=== PATIENT | male | born 1950 | race Two or more races ===

== ENCOUNTER → 2019-02-07 10:46 | Outpatient (CLI) | payer MEDICARE, SELFPAY ==
--- NOTE | 2019-02-07 11:17 | EKG12_ITS ---
Test Reason : PREOP Blood Pressure : / mmHG Vent. Rate : 059 BPM Atrial Rate : 059 BPM P-R Int : 192 ms QRS Dur : 100 ms QT Int : 380 ms P-R-T Axes : 039 -28 007 degrees QTc Int : 376 ms Sinus bradycardia Incomplete right bundle branch block Borderline ECG Confirmed by ELEAZAR RIVERO, EDNA ([id number]), photographic editor JANI SKELTON ([id number]) on 02/09/2019 10:33:33 AM Referred By: Bill Sanchez Confirmed By:EDNA BUSH MD
[2019-02-07 11:38] LABS: Hematocrit 39.8 % (40-54); Hemoglobin 13.7 g/dL (13.0-16.5); Mean Corp Hgb Conc 34.4 g/dL (32-36); Mean Corpuscular Hgb 30.5 pg (27.0-32.0); Mean Corpuscular Volume 88.6 fL (80-94); Mean Platelet Vol. 9.3 fl (6.2-12.0); Platelet Count 231 K/mm3 (150-450); RBC Distribution Width CV 12.2 % (11.6-14.6); RBC Distribution Width SD 39.4 fl (35.1-43.9); Red Blood Count 4.49 M/mm3 (4.6-6.2); White Blood Count 8.1 K/mm3 (4.4-11.0)
[2019-02-07 11:59] LABS: Anion Gap 8 (5-15); BUN 19 mg/dL (7-18); BUN/Creat Ratio 17.9 RATIO (10-20); Calcium,Total 9.1 mg/dL (8.5-10.1); Chloride 108 mmol/L (98-107); Creatinine, Serum 1.06 mg/dL (0.70-1.30); EST Glomerular Filtration Rate 74 mL/min (>60); Est Glom Filt Rate - Afr Amer 89 mL/min (>60); Glucose 100 mg/dL (74-106); Potassium 4.2 mmol/L (3.5-5.1); Sodium Level 142 mmol/L (136-145)
== END ==
PROVIDERS: Orthopaedic Surgery; Family Provider Family Medicine; PCP Family Medicine; Referring Provider Physician Assistant Surgical; Visit Provider Physician Assistant Surgical
DX: Z01.818 Encounter for other preprocedural examination (principal); Z01.810 Encounter for preprocedural cardiovascular examination
CPT/HCPCS: 36415; 80048; 85027; 93005

== ENCOUNTER → 2019-07-21 10:17 | Outpatient (CLI) | payer MEDICARE, SELFPAY ==
[2019-06-24 13:22] VITALS: BMI 31.6
[2019-07-21 12:35] LABS: Cholesterol 251 mg/dL (200); High Density Lipoprotein 51 mg/dL; PSA,Total - Annual Screen 0.68 ng/mL (0.00-4.00); Triglycerides 242 mg/dL; Very Low Density Lipoprotein 48 mg/dL (5-40)
== END ==
PROVIDERS: Family Medicine; Family Provider Family Medicine; PCP Family Medicine; Referring Provider Family Medicine; Visit Provider Family Medicine
DX: N40.0 Benign prostatic hyperplasia without lower urinary tract symptoms (principal); Z13.220 Encounter for screening for lipoid disorders
CPT/HCPCS: 36415; 80061; 84153; G0103

== ENCOUNTER 2019-08-09 00:55 | Inpatient (IN) | payer MEDICARE, SELFPAY ==
[2019-06-24 13:22] VITALS: BMI 31.6
[2019-08-09] VITALS (16 sets, daily range): BP systolic 107–153; BP diastolic 52–85; PULSE 55–90; RESP 14–25; TEMP 36.3–37.3; O2SAT 93–100; BMI 31.9; BMI 31.1; BMI 31.2
--- NOTE | 2019-08-09 01:12 | CT_ITS ---
STUDY: CT ABDOMEN AND PELVIS WITH CONTRAST REASON FOR EXAM: Male, 68 years old. ABDOMEN PAIN SINCE 930 PM LAST NIGHT BUT WORSE NOW -- HX:HLD,UMBILICAL HERNIA REPAIR RADIATION DOSAGE (If Supplied By Facility): CTDIvol = ( 18.10 ) mGy, DLP = ( 1205.49 ) mGycm TECHNIQUE: Transaxial images were obtained from the dome of the diaphragm to the symphysis pubis without oral contrast. Oral and amp; IV Gastrografin and amp; 100mL Isovue-300 was administered. Sagittal and coronal images were reconstructed. Individualized dose optimization techniques were used for this CT. COMPARISON: None. FINDINGS: There is mild posterior dependent atelectasis. Remainder of the lung bases are clear. The visualized portions of the heart are within normal limits. Normal liver. Overdistended gallbladder with suggestion of a stone near the gallbladder neck measuring 1.9 cm. Otherwise normal gallbladder and extrahepatic biliary system. Normal spleen. Normal pancreas. Normal bilateral adrenal glands. Right-sided peripelvic cysts, otherwise normal right kidney. Left-sided peripelvic cysts, otherwise normal left kidney. Nonspecific bilateral perinephric stranding. Normal bilateral ureters. The stomach is distended otherwise unremarkable. No hiatal hernia. There are loops of proximal small bowel distended up to 3.4 cm suggestive of localized ileus. The descending colon is decompressed otherwise unremarkable. The appendix is visualized and appears normal. There is diffuse atherosclerotic calcification of the abdominal aorta, without a demonstrated aneurysm. Normal inferior vena cava. Normal retroperitoneum. Normal urinary bladder. Normal visualized prostate gland. Normal abdominal wall. There are diffuse degenerative changes of the visualized lumbar spine. CT/Abdomen/Pelvis WITH Contrast IMPRESSION: Localized ileus of the proximal small bowel. Differential diagnosis includes nonspecific gastroenteritis and less likely early/partial small bowel obstruction. No acute appendicitis. Solitary gallstone with overdistention of the gallbladder otherwise abdominal viscera are unremarkable. Electronically Signed: Zoya Posadas MD at 3:37 EST , Service support ,
--- NOTE | 2019-08-09 01:12 | EKG12_ITS ---
Test Reason : GEN ILL Blood Pressure : / mmHG Vent. Rate : 058 BPM Atrial Rate : 058 BPM P-R Int : 226 ms QRS Dur : 102 ms QT Int : 406 ms P-R-T Axes : 054 -30 021 degrees QTc Int : 398 ms Sinus bradycardia with sinus arrhythmia with 1st degree A-V block Left axis deviation Incomplete right bundle branch block Abnormal ECG Confirmed by CHANDA RIVERO, TAMANNA ([id number]), video effects editor JANI SKELTON ([id number]) on 08/10/2019 1:48:53 PM Referred By: MECCA Confirmed By:TAMANNA ARMAS MD
--- NOTE | 2019-08-09 01:13 | ED.DCSUM_ITS ---
History of Present Illness Chief Complaint: Abd Pain Informant: Patient Onset: Hours - 3 hours Context: Gradual Onset Current Severity: Moderate Maximum Severity: Moderate Narrative: Patient presents with 3-hour history of mid abdominal pain. States it started gradually but continued to worsen. He is had no nausea or vomiting. He denies diarrhea. Pain started shortly after he took his evening medications. Only abdominal surgery was for an umbilical hernia repair 3 years ago. - Past Medical History (1) Arthritis Status: Chronic (2) Gout Status: Resolved (3) High cholesterol Status: Chronic Past Medical History - Allergies and Home Meds Allergies/Adverse Reactions: Allergies No Known Allergies Allergy (Verified 08/09/19 00:56) Primary Care Physician: Franko Haque MD [Primary Care Provider] - Prior records reviewed: Yes Lives: Spouse/ Significant Other Smoking Status: Former smoker Review of Systems General: Denies: Chills, Fever Eyes: Denies: Visual changes - left, Visual changes - bilaterally ENT: Denies: Bilateral ear pain Cardiovascular: Denies: Chest pain, Palpitations Respiratory: Denies: Dyspnea, Cough Gastrointestinal: Reports: Abdominal pain. Denies: Nausea, Vomiting, Diarrhea, Constipation Musculoskeletal: Denies: Back pain, Extremity Pain Skin: Denies: Rash Neurological: Denies: Headache, Parasthesia Allergy: Denies: Uticaria Physical Exam Vital Signs/Narrative: Vital Signs Temp Pulse Resp BP Pulse Ox 08/09/19 00:59 97.6 F L 59 L 18 153/80 H 98 Inital Vital Signs reviewed: Yes General: Well nourished, Well developed Head: Normocephalic ENT: Moist mucous membranes Neck: Supple Cardiovascular: Regular rate, Regular rhythm Respiratory: No distress, CTA bilaterally Abdomen: Soft, Normal bowel sounds, Tender - Mild epigastric tenderness.. Negative for: Guarding, Rebound tenderness Extremities: Nontender, No edema, - - Strong and equal distal pulses. Skin: Normal color, No rash Neurological: Alert, Oriented x3 Psychological: Normal affect Diagnostic/Tx/Re-eval Impressions Abdomen/Pelvis CT 08/09/19 01:12 IMPRESSION: Localized ileus of the proximal small bowel. Differential diagnosis includes nonspecific gastroenteritis and less likely early/partial small bowel obstruction. No acute appendicitis. Solitary gallstone with overdistention of the gallbladder otherwise abdominal viscera are unremarkable. Electronically Signed: Zoya Posadas MD at 3:37 EST , Service support , 08/09/19 01:12 Abdomen/Pelvis WITH Contrast [CT] Stat Laboratory Results 08/09/19 08/09/19 08/09/19 01:05 01:05 01:05 WBC 7.6 RBC 4.45 L Hgb 13.6 Hct 39.3 L MCV 88.3 MCH 30.6 MCHC 34.6 RDW Std Deviation 39.5 RDW Coeff of Faisal 12.3 Plt Count 240 MPV 9.1 Immature Gran % (Auto) 0.300 Neut % (Auto) 68.5 Lymph % (Auto) 22.7 [place] % (Auto) 6.4 Eos % (Auto) 1.7 Baso % (Auto) 0.4 Absolute Neuts (auto) 5.2 Absolute Lymphs (auto) 1.73 Nucleated RBC % 0 Sodium 141 Potassium 3.6 Chloride 106 Carbon Dioxide 29.0 Anion Gap 6 BUN 15 Creatinine 1.22 Estim Creat Clear Calc 55.29 Est GFR (MDRD) Af Amer 76 Est GFR (MDRD) Non-Af 62 BUN/Creatinine Ratio 12.3 Glucose 115 H Calcium 9.8 Total Bilirubin 0.40 Direct Bilirubin 0.16 AST 22 ALT 25 Alkaline Phosphatase 58 Troponin I < 0.015 Total Protein 7.7 Albumin 4.3 Globulin 3.4 Lipase 143 - EKG Initial EKG Interpretation: Sinus Bradycardia - Sinus bradycardia at 58 bpm. No acute ischemia. - Medical Decision Making Patient was initially given morphine and Zofran followed by dose of Dilaudid for pain control. Lab work is unremarkable. CT scan shows evidence of ileus. Patient continues to have significant abdominal discomfort. I recommended observation overnight for repeat abdominal exam. I advised him that at this time his gallbladder is distended but there is no pericholecystic fluid. Patient is not focally tender in the right upper quadrant. This will need to be watched and ultrasound obtained if symptoms worsen in this region. I will speak with hospitalist regarding admission. ED Disposition - Plan for ED Patient: Disposition: Acute Care Hospital [facility] Diagnosis: Ileus Referrals: Franko Haque MD [Primary Care Provider] -
[2019-08-09 01:19] LABS: Absolute Lymphocyte Count 1.73 X10^3/uL (0.83-4.51); Absolute Neutrophil Count 5.2 X10^3/uL (2.0-7.7); Basophil# 0.03 X10^3/uL; Basophil% 0.4 % (0-1); Eosinophil# 0.13 X10^3/uL; Eosinophils% 1.7 % (0-5); Hematocrit 39.3 % (40-54); Hemoglobin 13.6 g/dL (13.0-16.5); Lymphocyte # 1.73 X10^3/ul (4.0); Lymphocyte % 22.7 % (19-41); Mean Corp Hgb Conc 34.6 g/dL (32-36); Mean Corpuscular Hgb 30.6 pg (27.0-32.0); Mean Corpuscular Volume 88.3 fL (80-94); Mean Platelet Vol. 9.1 fl (6.2-12.0); Monocyte# 0.49 X10^3/uL; Monocyte% 6.4 % (0-10); NRBC Flagged by Analyzer 0 % (0-5); Neutrophil # 5.23 X10^3/uL (2.7-7.7); Neutrophil % 68.5 % (47-70); Platelet Count 240 K/mm3 (150-450); RBC Distribution Width CV 12.3 % (11.6-14.6); RBC Distribution Width SD 39.5 fl (35.1-43.9); Red Blood Count 4.45 M/mm3 (4.6-6.2); White Blood Count 7.6 K/mm3 (4.4-11.0)
[2019-08-09] MEDS: Morphine 4 MG/ML Syringe IV (01:21)
[2019-08-09] MEDS: 0.9% Normal Saline 1,000 ML 150 ML IV ×3 (01:21→13:37)
[2019-08-09] MEDS: Ondansetron 4 MG/2 ML Vial IV (01:21)
[2019-08-09 01:32] LABS: AST(SGOT) 22 U/L (15-37); Alanine Aminotransfer ALT/SGPT 25 U/L (16-61); Albumin, Serum 4.3 g/dL (3.2-5.0); Alkaline Phosphatase 58 U/L (45-117); Anion Gap 6 (5-15); BUN 15 mg/dL (7-18); BUN/Creat Ratio 12.3 RATIO (10-20); Bilirubin, Direct 0.16 mg/dL (0.00-0.30); Calcium,Total 9.8 mg/dL (8.5-10.1); Chloride 106 mmol/L (98-107); Creatinine, Serum 1.22 mg/dL (0.70-1.30); EST Glomerular Filtration Rate 62 mL/min (>60); Est Glom Filt Rate - Afr Amer 76 mL/min (>60); Estimated Creatinine Clearance 55.29 ml/min; Globulin 3.4 g/dL (2.2-4.2); Glucose 115 mg/dL (74-106); Lipase 143 U/L (73-393); Potassium 3.6 mmol/L (3.5-5.1); Protein, Total 7.7 g/dL (6.4-8.2); Sodium Level 141 mmol/L (136-145)
[2019-08-09] MEDS: HYDROmorphone 0.5 MG/0.5 ML SYRINGE IV (01:51)
--- NOTE | 2019-08-09 04:00 | PCM.HP.STD ---
Problem List (1) Arthritis Status: Chronic (2) Gout Status: Resolved (3) High cholesterol Status: Chronic (4) Ileus Status: Acute History of Present Illness Date of Admission: 08/09/19 Chief Complaint: abdominal pain The patient is a 68 year old male with no significant past medical history presents the emergency room with abdominal pain. Onset was last night at 9:00. 9/10 abdominal pain in the epigastrium, not associated with eating, no nausea vomiting or diarrhea. The pain became so severe he came to the emergency room to be evaluated. CT scan reveals a localized ileus in the small bowel and also notes a gallstone is present. CBC and BMP are within normal limits. Despite morphine and Dilaudid pain is still at 7/10. He will be admitted to general medical floor for pain control and monitoring of ileus. Past Medical History Past Medical History (Chronic Problems): Chronic Problems (Last Updated 06/24/19 @ 13:27 by Kam Franco) Arthritis (Chronic) High cholesterol (Chronic) Medical History: Medical History (Last Updated 06/24/19 @ 13:27 by Kam Franco) Back pain M54.9 History of arthritis Z87.39 History of gout Z87.39 Neck pain M54.2 Shoulder pain M25.519 Umbilical hernia K42.9 headaches Allergies No Known Allergies Allergy (Verified 08/09/19 00:56) Home Medications: Ambulatory Orders Medication Instructions Recorded terazosin 10 mg capsule 10 mg PO DAILY 06/24/19 Atorvastatin Calcium [Lipitor] 20 mg PO QHS 08/09/19 Diclofenac Sodium [Voltaren] 2 g TOPICAL TID PRN PRN 08/09/19 Docusate Sodium [Stool Softener] 100 mg PO DAILY 08/09/19 Surgical History: Surgical History (Last Updated 06/24/19 @ 13:27 by Kam Franco) History of shoulder surgery Z98.890 Lives: Spouse/ Significant Other Smoking Status: Former smoker Tobacco Use: Cigarettes - *Family History Maternal History Items: No pertinent history Review of Systems Constitutional: Denies: Chills, Fever, Weight Change HEENT: Denies: Head Aches, Sinus Congestion, Sinus Drainage Cardiovascular: Denies: Chest Pain, Palpitations Respiratory: Denies: Cough, Shortness of breath at rest, Sputum production Gastrointestinal: Reports: Abdominal Pain. Denies: Nausea, Vomiting Genitourinary: Denies: Dysuria Musculoskeletal: Denies: Joint Pain, Joint Tenderness Skin: Denies: Rash, Wounds Neurological: Denies: Numbness, Tingling, Focal weakness Psychiatric: Denies: Anxiety, Depression, Homicidal Ideations, Suicidal Ideations Hematologic/ Lymphatic: Denies: Easy Bruising, Easy Bleeding VTE Information - Inpt Only VTE Present on Admission: No VTE Mechan Device Prophylaxis: None VTE Pharm Prophylaxis ordered?: Yes Patient Problems: Active and Suspected Problems (Last Updated 06/24/19 @ 13:27 by Kam Franco) Ileus (Acute) - Physical Exam Vitals/I&O's: Vital Signs Temp Pulse Resp BP Pulse Ox 97.6 F L 55 L 16 124/71 H 98 08/09/19 00:59 08/09/19 03:06 08/09/19 03:06 08/09/19 03:06 08/09/19 03:06 Oxygen Flow Rate (L/min) 2 Oxygen Delivery Method Room Air Weight: 210 lb 5.136 oz Body Mass Index (BMI) 31.9 General: Alert, Oriented x3, Cooperative HEENT: Atraumatic, Normocephalic Neck: Supple, No JVD, Negative Carotid Bruits Lungs: Clear to auscultation, Normal air movement Cardiovascular: Regular rate, No murmurs Abdomen: Bowel Sounds Present, Distended, Tender Extremities: No edema Skin: No rashes Musculoskeletal: No Tenderness to Palpation of Joints or Extremities Neurological: Neuro grossly intact Psych/Mental Status: Normal Affect, Appropriate Laboratory Results 08/09/19 01:05: WBC 7.6, RBC 4.45 L, Hgb 13.6, Hct 39.3 L, MCV 88.3, MCH 30.6, MCHC 34.6, RDW Std Deviation 39.5, RDW Coeff of Faisal 12.3, Plt Count 240, MPV 9.1, Immature Gran % (Auto) 0.300, Neut % (Auto) 68.5, Lymph % (Auto) 22.7, [place] % (Auto) 6.4, Eos % (Auto) 1.7, Baso % (Auto) 0.4, Absolute Neuts (auto) 5.2, Absolute Lymphs (auto) 1.73, Nucleated RBC % 0 08/09/19 01:05: Sodium 141, Potassium 3.6, Chloride 106, Carbon Dioxide 29.0, Anion Gap 6, BUN 15, Creatinine 1.22, Estim Creat Clear Calc 55.29, Est GFR (MDRD) Af Amer 76, Est GFR (MDRD) Non-Af 62, BUN/Creatinine Ratio 12.3, Glucose 115 H, Calcium 9.8, Total Bilirubin 0.40, Direct Bilirubin 0.16, AST 22, ALT 25, Alkaline Phosphatase 58, Total Protein 7.7, Albumin 4.3, Globulin 3.4, Lipase 143 08/09/19 01:05: Troponin I < 0.015 Current Medications Sodium Chloride () 1,000 mls @ 150 mls/hr IV .Q6H40M OSIEL Last Admin: 08/09/19 01:21 Dose: 150 mls/hr Documented by: Assessment/Plan All Active Problems (Last Updated 06/24/19 @ 13:27 by Kam Franco) Gout (Resolved) Ileus (Acute) Sinusitis, acute (Acute) Chronic Problems (Last Updated 06/24/19 @ 13:27 by Kam Franco) Arthritis (Chronic) High cholesterol (Chronic) Plan 1. Ileus?possibly developing small bowel obstruction?admit to general medical floor, make patient n.p.o., Dilaudid 1 mg IV every 2 hours as needed pain, consult surgeon Dr. Vallejo, repeat KUB in the a.m. 2. Hyperlipidemia?continue home medication when patient is able to take p.o. 3. DVT prophylaxis?low molecular weight heparin Code Visit Inpatient E&M: [id number] Init Hosp L3
[2019-08-09 04:23] LABS: Bacteria 0 SEEN /hpf (None Seen); Color, Urine Yellow (Yellow); Glucose, Dipstick Normal (Normal); Ketone-Dipstick 50 mg/dl (Negative); Leukocyte Esterase-Dipstick Negative /ul (Negative); Mucous, Urine 0 SEEN /hpf (<or=2+); Nitrite-Dipstick Negative (Negative); Occult Blood-Urine Negative /ul (Negative); Protein-Dipstick Negative (Negative); Squamous Epithelial Cells - UA 0 SEEN /hpf (0-5); Urine Bilirubin Dipstick Negative (Negative); Urine Clarity Clear (Clear); Urine Urobilinogen Normal (Normal); White Blood Cells 0 SEEN /hpf (0-5)
[2019-08-09 04:35] LABS: Red Blood Cells-Urine 0-5 SEEN /hpf (0-5)
[2019-08-09] MEDS: HYDROmorphone 1 MG/ML Syringe IV (05:10)
[2019-08-09 06:53] LABS: ALB/GLOB Ratio 1.2 RATIO (0.9-2.4); AST(SGOT) 19 U/L (15-37); Alanine Aminotransfer ALT/SGPT 23 U/L (16-61); Albumin, Serum 3.8 g/dL (3.2-5.0); Alkaline Phosphatase 49 U/L (45-117); Anion Gap 5 (5-15); BUN 13 mg/dL (7-18); BUN/Creat Ratio 13.7 RATIO (10-20); Chloride 105 mmol/L (98-107); Creatinine, Serum 0.95 mg/dL (0.70-1.30); EST Glomerular Filtration Rate 84 mL/min (>60); Est Glom Filt Rate - Afr Amer 101 mL/min (>60); Globulin 3.1 g/dL (2.2-4.2); Glucose 122 mg/dL (74-106); Potassium 3.7 mmol/L (3.5-5.1); Protein, Total 6.9 g/dL (6.4-8.2); Sodium Level 137 mmol/L (136-145)
--- NOTE | 2019-08-09 07:53 | CON.PCM_ITS ---
Problem List (1) Cholelithiasis Status: Acute Qualifiers: Cholelithiasis location: gallbladder Cholecystitis presence: with cholecystitis Cholecystitis acuity: chronic Biliary obstruction: without biliary obstruction Qualified Code(s): K80.10 - Calculus of gallbladder with chronic cholecystitis without obstruction Reason for Consult Date of Consultation: 08/09/19 History of Present Illness: The patient is a 68 year old M who presented to the hospital yesterday with epigastric pain. The patient feels very bloated and feels like he is being blown up. He does have nausea but no vomiting. He has no fevers or chills. Past Medical History Past Medical History (Chronic Problems): Chronic Problems (Last Updated 06/24/19 @ 13:27 by Kam Franco) Arthritis (Chronic) High cholesterol (Chronic) Medical History: Medical History (Last Updated 06/24/19 @ 13:27 by Kam Franco) Back pain M54.9 History of arthritis Z87.39 History of gout Z87.39 Neck pain M54.2 Shoulder pain M25.519 Umbilical hernia K42.9 headaches Allergies No Known Allergies Allergy (Verified 08/09/19 00:56) Home Medications: Ambulatory Orders Medication Instructions Recorded terazosin 10 mg capsule 10 mg PO DAILY 06/24/19 Atorvastatin Calcium [Lipitor] 20 mg PO QHS 08/09/19 Diclofenac Sodium [Voltaren] 2 g TOPICAL TID PRN PRN 08/09/19 Docusate Sodium [Stool Softener] 100 mg PO DAILY 08/09/19 Surgical History: Surgical History (Last Updated 06/24/19 @ 13:27 by Kam Franco) History of shoulder surgery Z98.890 Surgical History: - - Umbilical hernia repair Lives: Spouse/ Significant Other Smoking Status: Former smoker Tobacco Use: Cigarettes - *Family History Maternal History Items: No pertinent history Review of Systems Constitutional: Denies: Anorexia, Fever Eyes: Reports: - - Blindness HEENT: Denies: Difficulty Swallowing Cardiovascular: Denies: Chest Pain Respiratory: Denies: Cough, Shortness of Breath Gastrointestinal: Reports: Abdominal Pain, Nausea. Denies: Constipation, Diar vilma, Vomiting Genitourinary: Denies: Dysuria Musculoskeletal: Denies: Joint Tenderness Neurological: Denies: Balance problems Psychiatric: Denies: Anxiety Hematologic/ Lymphatic: Denies: Adenopathy Patient Problems: Active and Suspected Problems (Last Updated 06/24/19 @ 13:27 by Kam Franco) Ileus (Acute) Cholelithiasis (Acute) - Physical Exam Vitals/I&O's: Vital Signs Temp Pulse Resp BP Pulse Ox 97.9 F 61 16 137/66 H 100 08/09/19 04:40 08/09/19 04:40 08/09/19 04:40 08/09/19 04:40 08/09/19 04:40 Oxygen Flow Rate (L/min) 2 Oxygen Delivery Method Nasal Cannula Weight: 205 lb 0.478 oz Body Mass Index (BMI) 31.1 Intake and Output for Last 24 Hours 08/07/19 08/08/19 08/09/19 23:59 23:59 23:59 Intake Total 0 / 0 Output Total 0 / 0 Balance 0 / 0 General: Alert, Oriented x3 Neck: No JVD Lungs: Normal air movement Cardiovascular: Regular rate, Regular Rhythm Abdomen: Soft, Distended, Tender - Tender in the epigastric region Skin: No rashes Musculoskeletal: No Muscle Wasting Neurological: Cranial nerves II-XII grossly intact Psych/Mental Status: Normal Affect Laboratory Results 08/09/19 01:05: WBC 7.6, RBC 4.45 L, Hgb 13.6, Hct 39.3 L, MCV 88.3, MCH 30.6, MCHC 34.6, RDW Std Deviation 39.5, RDW Coeff of Faisal 12.3, Plt Count 240, MPV 9.1, Immature Gran % (Auto) 0.300, Neut % (Auto) 68.5, Lymph % (Auto) 22.7, [place] % (Auto) 6.4, Eos % (Auto) 1.7, Baso % (Auto) 0.4, Absolute Neuts (auto) 5.2, Absolute Lymphs (auto) 1.73, Nucleated RBC % 0 08/09/19 01:05: Sodium 141, Potassium 3.6, Chloride 106, Carbon Dioxide 29.0, Anion Gap 6, BUN 15, Creatinine 1.22, Estim Creat Clear Calc 55.29, Est GFR (MDRD) Af Amer 76, Est GFR (MDRD) Non-Af 62, BUN/Creatinine Ratio 12.3, Glucose 115 H, Calcium 9.8, Total Bilirubin 0.40, Direct Bilirubin 0.16, AST 22, ALT 25, Alkaline Phosphatase 58, Total Protein 7.7, Albumin 4.3, Globulin 3.4, Lipase 143 08/09/19 01:05: Troponin I < 0.015 08/09/19 04:05: Urine Color Yellow, Urine Clarity Clear, Urine pH 8.0, Ur Specific [place] 1.010, Urine Protein Negative, Urine Glucose (UA) Normal, Urine Ketones 50 H, Urine Occult Blood Negative, Urine Nitrite Negative, Urine Biliru bin Negative, Urine Urobilinogen Normal, Ur Leukocyte Esterase Negative, Urine RBC 0-5 SEEN, Urine WBC 0 SEEN, Ur Squamous Epith Cells 0 SEEN, Urine Bacteria 0 SEEN, Urine Mucus 0 SEEN 08/09/19 06:15: Sodium 137, Potassium 3.7, Chloride 105, Carbon Dioxide 27.0, Anion Gap 5, BUN 13, Creatinine 0.95, Estim Creat Clear Calc 71.00, Est GFR (MDRD) Af Amer 101, Est GFR (MDRD) Non-Af 84, BUN/Creatinine Ratio 13.7, Glucose 122 H, Calcium 9.0, Total Bilirubin 0.50, AST 19, ALT 23, Alkaline Phosphatase 49, Total Protein 6.9, Albumin 3.8, Globulin 3.1, Albumin/Globulin Ratio 1.2 Clinical Impression(s) from Imaging Studies Abdomen/Pelvis CT 08/09/19 01:12 IMPRESSION: Localized ileus of the proximal small bowel. Differential diagnosis includes nonspecific gastroenteritis and less likely early/partial small bowel obstruction. No acute appendicitis. Solitary gallstone with overdistention of the gallbladder otherwise abdominal viscera are unremarkable. Electronically Signed: Zoya Posadas MD at 3:37 EST , Service support , Current Medications Enoxaparin Sodium (Lovenox) 40 mg SC DAILY [facility] Hydromorphone HCl (Dilaudid Inj) 1 mg IV Q2H PRN PRN PRN Reason: Pain or Fever Last Admin: 08/09/19 05:10 Dose: 1 mg Documented by: Sodium Chloride () 1,000 mls @ 150 mls/hr IV .Q6H40M [facility] Last Admin: 08/09/19 01:21 Dose: 150 mls/hr Documented by: Ondansetron HCl (Zofran) 4 mg IV Q8H PRN PRN PRN Reason: NAUSEA/VOMITING Sodium Chloride () 10 - 40 ml IV UD PRN PRN Reason: SALINE FLUSH Assessment/Plan All Active Problems (Last Updated 06/24/19 @ 13:27 by Kam Franco) Gout (Resolved) Ileus (Acute) Cholelithiasis (Acute) Sinusitis, acute (Acute) 68-year-old male with cholelithiasis 1. Patient is having epigastric pain and fullness. CT scan reveals a very large stomach full of food and dilated proximal bowel. The patient also has a large gallstone in the neck of the gallbladder with over distention of the gallbladder. Likely the patient has impaction of the stone in the neck of the gallbladder causing an ileus. I recommended laparoscopic cholecystectomy. 2. I discussed the procedure in detail with the patient. I discussed the risks, benefits, and alternatives of the procedure. I discussed the risks including but not limited to bleeding, infection, injury to surrounding organs such as the liver, bile duct, bowels. I did discuss the possibility of having to convert to an open procedure as well as the possibility that if any injuries occurred this may necessitate further surgery at a tertiary care center. 3. Plan for laparoscopic cholecystectomy late morning. I will have the nurses place an NG tube to relieve his stomach distention. Harrison Vallejo MD Pager: [facility] [address] [place] [address], [address] [place] [address] Office:
[2019-08-09] MEDS: Lidocaine 4% 5 ML Ampul 2 ML INHALATION (08:40)
[2019-08-09] MEDS: Oxymetazoline 0.05% 1 SPRAY SPRAY.BTL 2 SPRAY NASAL (08:43)
--- NOTE | 2019-08-09 09:05 | RAD_ITS ---
STUDY: X-RAY - ABDOMEN/PELVIS REASON FOR EXAM: Male, 68 years old. NG tube placement, pre op, abd pain, ileus TECHNIQUE: Single AP view of the abdomen / pelvis. COMPARISON: None. FINDINGS: A nasogastric tube is seen. The tip is in the body of the stomach. There is a moderate amount of colonic fecal material. The visualized liver, spleen and kidneys are grossly normal in size and morphology. Normal soft tissue structures. There are diffuse degenerative changes of the visualized lumbar spine. RAD/Abdomen Single View IMPRESSION: The tip of the nasogastric tube is in the body of the stomach. Electronically Signed: Teo Menchaca, at 9:39 EST , Service support ,
--- NOTE | 2019-08-09 10:30 | RAD_ITS ---
STUDY: INTRAOPERATIVE CHOLANGIOGRAM. REASON FOR EXAM: Male, 68 years old. LAP CASSIE WITH IOC FLUOROSCOPY TIME (if supplied): ( 9.1 seconds ) minutes/seconds TECHNIQUE: Intraoperative Cholangiogram was performed by the surgeon. Imaging was submitted. COMPARISON: None. FINDINGS: The visualized intrahepatic biliary ducts are unremarkable. The common bile duct is not dilated. No intraluminal filling defect is seen. There is free flow of contrast into the duodenum. RAD/Cholangiogram/ O R,Initial IMPRESSION: Unremarkable intraoperative cholangiogram. Electronically Signed: Teo Menchaca, at 12:36 EST , Service support ,
--- NOTE | 2019-08-09 11:00 | GALL_PTH ---
PATIENT: BENEDICTO DAVIS LOC: MS3 U#:[id number] AGE/SX: 68/M ROOM: NH312 RE08/09/[address]: Dr. Elvis Patel MD : [id number] BED: 1 DIS: 08/11/2019 SPEC #: [id number] RECD: 08/10/19 08:13 STATUS: HARPREET RETyler #: [id number] KAVITA: 08/09/19 11:[address]: Harrison Vallejo DEPT: SURGICAL PATHOLOGY RECD BY: Nain Prado ENTERED: 08/10/19 08:30 SP TYPE: ESTER FAUSTIN DR: MD Dr. Grant Orellana MD Dr. Paul Nielsen, MD Tissues: Gallbladder, NOS Procedures: Surgery Specimen Level III HEADER OPERATION: Laparoscopic cholecystectomy with IOC PRE-OP DIAGNOSIS: Calculus of gallbladder with chronic cholecystitis TISSUE SUBMITTED: Gallbladder MICROSCOPIC DIAGNOSIS Gallbladder, cholecystectomy: Acute and chronic cholecystitis, cholelithiasis and cholesterolosis. MORGAN:victor manuel 08/11/19 MICROSCOPIC DESCRIPTION Slides are reviewed. GROSS DESCRIPTION Received is one container labeled with the patient's name and designated gallbladder. The specimen consists of a gallbladder measuring 10 cm in length and 3.5 cm in diameter. The external surface is pink-hays, smooth and glistening for the most part. Focally it is granular, hemorrhagic and contains cautery artifact. The gallbladder contains green-yellow mucoid bile and one ovoid rough surface green-brown stone measuring 4 x 2 x 2 cm. The mucosa is bile-stained and without any mass lesions. The gallbladder wall measures up to 0.4 cm in thickness. Document Preparation Specialist sections from the gallbladder and the cystic duct are submitted in one cassette. / MORGAN:victor manuel 08/10/19 TC:2 CPT: 11011
[2019-08-09] MEDS: Lactated Ringers 1,000 ML 100 ML IV (11:20)
[2019-08-09] MEDS: Bupiv/Epi 0.25% 30 ML Vial (11:40)
--- NOTE | 2019-08-09 12:00 | PCM.OPRPT ---
Problem List (1) Cholelithiasis Status: Acute Qualifiers: Cholelithiasis location: gallbladder Cholecystitis presence: with cholecystitis Cholecystitis acuity: chronic Biliary obstruction: without biliary obstruction Qualified Code(s): K80.10 - Calculus of gallbladder with chronic cholecystitis without obstruction Report of Operation Date of Procedure: 08/09/19 Pre-Operative Diagnosis: Acute cholecystitis Post-Operative Diagnosis: Same Surgery/Procedure Performed:: Laparoscopic cholecystectomy with cholangiogram Specimen's removed: Gallbladder and contents Description of Procedure: After obtaining informed consent patient was brought back to the operating room. General anesthesia was induced. The abdomen was prepped and draped in usual sterile fashion. A small midline incision was made superior to the umbilicus and deepened to the level of fascia. The fascia was elevated and incised. Next the peritoneum was elevated and incised in the same fashion. Finger sweep was performed and the Adams trocar was placed into the abdomen. The balloon was inflated. The abdomen was inflated to 15 mmHg. Next a camera was introduced into the abdomen and the abdomen was inspected. Next under direct visualization three 5-mm ports were placed one subxiphoid and 2 subcostal. Next the gallbladder was elevated and retracted toward the right shoulder. The gallbladder was very inflamed and distended. Aspirating needle was used to aspirate contents. The peritoneum was stripped from the gallbladder. The infundibulum was located and retracted laterally. Next the triangle of Calot was dissected and the cystic duct and cystic artery were identified. Cholangiograms were performed. The Lara clamp was used to clamp across the infundibulum and the catheter needle was inserted into the gallbladder. Under fluoroscopy contrast was instilled into the gallbladder and the common duct, cystic duct as well as proximal hepatic ducts were identified. There was good filling of the duodenum. There were no filling defects noted in the common bile duct. The clamp was removed as well as the needle and the infundibulum was grasped once more. Three hemolock clips were placed across the cystic duct. The cystic duct was then divided leaving 2 clips on the stump. The cystic artery was clipped and divided in the same fashion. The hook cautery was then used to take the gallbladder off of the gallbladder bed. Hemostasis was obtained. Gallbladder fossa was irrigated and no active bleeding or bile leakage was noted. Next the camera switched to a 5 mm camera and introduced in the subxiphoid port. An Endopouch bag was placed through the umbilical port and the gallbladder was placed into it. The gallbladder was then removed through the umbilical incision. The camera was then reinserted through the umbilical port. The gallbladder fossa was inspected once more and noted to be hemostatic with no leaking bile. The abdomen was suctioned dry. The 5 mm ports were removed under direct visualization. The umbilical port was then removed and the air was removed from the abdomen. Next using an 0 Vicryl suture the umbilical fascia was closed in a [id number] fashion. The umbilical port site was irrigated local anesthetic was administered to all the incisions. All the incisions were closed with interrupted subcuticular 4-0 Monocryl sutures followed by Steri-Strips and dressings. The patient was awoken and taken to PACU in stable condition. - Admit VTE Documentation VTE Mechan Device Prophylaxis: SCD's
--- NOTE | 2019-08-09 12:03 | PCM.PN.BLA ---
Progress Note Patient had a very inflamed gallbladder and acute cholecystitis. He also had a very distended colon. His NG did not put out much after the initial drainage and his small bowel did not appear distended. I will have the NG removed at the end of the case. I will keep him n.p.o. until he starts passing flatus. Harrison Vallejo MD Pager: [facility] [address] [place] [address], [address] [place] [address] Office: [facility] Vital Signs/Narrative: Vital Signs Temp Pulse Resp BP Pulse Ox 08/09/19 09:16 98.7 F 69 16 123/70 H 96
--- NOTE | 2019-08-09 12:28 | CASEMGMT ---
Case Management Progress Note: This auto service writer to patient bedside x2 to attempt to complete RNCM initial assessment. Patient not at bedside and having a procedure. RNCM to continue to follow for completion of assessment and care coordination needs. Maria Del Carmen Santana, SRIDHARCM
--- NOTE | 2019-08-09 13:44 | CASEMGMT ---
RN CM Assessment Introduced role of RN CM to patient, patient Payton and Dtr/other family at bedside.? Patient is alert, oriented and able?to participate in RN CM Assessment. ?Care providers, pharmacy, and demographics verified. Presentation: Abd Pain Admit Dx: Abd Pain, Ileus Re-Admit: No Barriers/Issues: None, has a good family support PCP: Tl Haque Specialists: Pulm- Dr Carrillo, Ortho- Dr Parra Preferred [facility]acy[facility] Insurance: [facility] A&B Rx Benefit:?Yes ?LNOK: Payton Strickland LW/HPOA: None, denies completion this admission, wants information- provided by this telegraphic typewriter operator chief and made aware can return as an outpatient to complete with the dept Living Arrangements: Lives with , Dtr, son in law, 4 grandchildren in a 2SH, Bedroom on upper level, 2 steps to enter home? ADL?s: Independent with ambulation, uses a cane as needed not for walking but guiding, and stand by assist. independent with ADLs Transportation: drives, denies transportation issues DME: CPAP- cannot recall what company provided it. Denies any other DME HHC: None. HHC list left for patient at bedside. SNF: None Goal: Home and does not think will have any needs. Good family support system. Denies any issues, concerns, needs, or questions with DC planning at this time. Aware CM remains available for any emerging needs. DC PLAN: Home with no anticipated needs identified at this time. Maria Del Carmen Santana RNCM
--- NOTE | 2019-08-09 16:13 | PCM.PN.BLA ---
Progress Note Patient is a 68-year-old gentleman admitted with abdominal pain. Diagnosed with gallstone ileus. General surgery consulted patient underwent laparoscopic cholecystectomy findings included acute cholecystitis. Patient seen and examined after his procedure. His initial assessment including history and physical diagnostic data and management orders reviewed and will follow [facility] Vital Signs/Narrative: Vital Signs Temp Pulse Resp BP Pulse Ox 08/09/19 15:15 98.6 F 68 14 118/59 L 95 08/09/19 13:15 98.3 F 64 16 108/58 L 97 08/09/19 12:56 97.4 F L 74 14 114/57 L 93 08/09/19 12:44 68 14 111/83 H 97 08/09/19 12:31 58 L 16 110/52 L 100 08/09/19 12:15 69 16 116/85 H 100
[2019-08-09] MEDS: 0.9% Normal Saline 1,000 ML 125 ML IV (21:30)
[2019-08-10 01:08] VITALS: BP 130/73; PULSE 79; RESP 18; TEMP 37.2; O2SAT 97
[2019-08-10] MEDS: 0.9% Normal Saline 1,000 ML 125 ML IV ×3 (04:59→20:14)
[2019-08-10 05:11] VITALS: BP 117/57; PULSE 72; RESP 16; TEMP 36.9; O2SAT 95
--- NOTE | 2019-08-10 07:11 | PN_ITS ---
Patient Problems: Active and Suspected Problems (Last Updated 06/24/19 @ 13:27 by Kam Franco) Ileus (Acute) Cholelithiasis (Acute) Reason for Visit: Follow-up colonic ileus and acute cholecystitis Subjective: Patient is a 68-year-old gentleman admitted with abdominal pain. Diagnosed with gallstone ileus. General surgery consulted patient underwent laparoscopic cholecystectomy findings included acute cholecystitis. Objective: GENERAL: cooperative HEENT: Atraumatic; EYES; Anicteric, NECK; supple, normal thyroid, RESPIRATORY: Diminished to auscultation CARDIOVASCULAR: Regular S1 S2, GI: Slightly distended, tympanitic to percussion : No Renal angle tenderness; EXTREMITIES: No edema, no clubbing, MUSCULOSKELETAL: no muscle waisting NEURO: Awake; no lateralizing signs. SKIN: No Rash PSYCH; Flat affect Vitals/I&O's: Vital Signs Temp Pulse Resp BP Pulse Ox 98.4 F 72 16 117/57 L 95 08/10/19 05:11 08/10/19 05:11 08/10/19 05:11 08/10/19 05:11 08/10/19 05:11 Oxygen Flow Rate (L/min) 2 Oxygen Delivery Method Room Air Weight: 93 kg Body Mass Index (BMI) 31.1 Intake and Output for Last 24 Hours 08/08/19 08/09/19 08/10/19 23:59 23:59 23:59 Intake Total 3044.17 / 3044.17 935.42 / 935.42 Output Total 0 / 0 Balance 3044.17 / 3044.17 935.42 / 935.42 Current Medications Enoxaparin Sodium (Lovenox) 40 mg SC DAILY [facility] Last Admin: 08/09/19 08:44 Dose: Not Given Documented by: Hydromorphone HCl (Dilaudid Inj) 1 mg IV Q2H PRN PRN PRN Reason: Pain or Fever Last Admin: 08/09/19 05:10 Dose: 1 mg Documented by: Sodium Chloride () 1,000 mls @ 125 mls/hr IV .Q8H [facility] Last Admin: 08/10/19 04:59 Dose: 125 mls/hr Documented by: Ondansetron HCl (Zofran) 4 mg IV Q8H PRN PRN PRN Reason: NAUSEA/VOMITING Sodium Chloride () 10 - 40 ml IV UD PRN PRN Reason: SALINE FLUSH [facility] Vital Signs/Narrative: Vital Signs Temp Pulse Resp BP Pulse Ox 08/10/19 05:11 98.4 F 72 16 117/57 L 95 Medical Necessity - Tobacco Use Smoking Status: Former smoker Tobacco Use: Cigarettes Assessment/Plan All Active Problems (Last Updated 06/24/19 @ 13:27 by Kam Franco) Gout (Resolved) Ileus (Acute) Cholelithiasis (Acute) Sinusitis, acute (Acute) Patient is a 68-year-old gentleman admitted with abdominal pain. Diagnosed with gallstone ileus. General surgery consulted patient underwent laparoscopic cholecystectomy findings included acute cholecystitis. 1. Acute cholecystitis Patient underwent laparoscopic cholecystectomy on 08/09/2018. Patient yet to pass gas or have a BM. Still remains n.p.o. 2. Ileus (gallstone ileus and colonic ileus) ?Patient managed conservatively with bowel rest fluids. Did encourage patient to ambulate and also to chew gum. General surgery on consult note from Dr. Vallejo reviewed 3. Legal blindness ?Supportive care in addition to fall precautions 4. Dyslipidemia ?Patient is on atorvastatin home plan is to resume once patient resumes oral diet 5. DVT prophylaxis ?Patient is on enoxaparin Code Visit Inpatient E&M: 87807 Subs Hosp L2
[2019-08-10 07:49] VITALS: O2SAT 94
--- NOTE | 2019-08-10 08:40 | PCM.PN.SRG ---
Patient Problems: Active and Suspected Problems (Last Updated 06/24/19 @ 13:27 by Kam Franco) Ileus (Acute) Cholelithiasis (Acute) Subjective: Patient reports feeling better this morning. He is not having any nausea but he is also not passing any flatus. - Physical Exam Vitals/I&O's: Vital Signs Temp Pulse Resp BP Pulse Ox 98.4 F 72 16 117/57 L 94 08/10/19 05:11 08/10/19 05:11 08/10/19 05:11 08/10/19 05:11 08/10/19 07:49 Oxygen Flow Rate (L/min) 2 Oxygen Delivery Method Room Air Weight: 205 lb 0.478 oz Body Mass Index (BMI) 31.1 Intake and Output for Last 24 Hours 08/08/19 08/09/19 08/10/19 23:59 23:59 23:59 Intake Total 3044.17 / 3044.17 935.42 / 935.42 Output Total 0 / 0 Balance 3044.17 / 3044.17 935.42 / 935.42 General: Alert, Oriented x3 Neck: No JVD Lungs: Normal air movement Cardiovascular: Regular rate, Regular Rhythm Abdomen: Soft, Distended Musculoskeletal: No Muscle Wasting Neurological: Cranial nerves II-XII grossly intact Psych/Mental Status: Normal Affect Current Medications Enoxaparin Sodium (Lovenox) 40 mg SC DAILY [facility] Last Admin: 08/09/19 08:44 Dose: Not Given Documented by: Hydromorphone HCl (Dilaudid Inj) 1 mg IV Q2H PRN PRN PRN Reason: Pain or Fever Last Admin: 08/09/19 05:10 Dose: 1 mg Documented by: Sodium Chloride () 1,000 mls @ 125 mls/hr IV .Q8H [facility] Last Admin: 08/10/19 04:59 Dose: 125 mls/hr Documented by: Ondansetron HCl (Zofran) 4 mg IV Q8H PRN PRN PRN Reason: NAUSEA/VOMITING Sodium Chloride () 10 - 40 ml IV UD PRN PRN Reason: SALINE FLUSH Medical Necessity - Tobacco Use Smoking Status: Former smoker Tobacco Use: Cigarettes Assessment/Plan All Active Problems (Last Updated 06/24/19 @ 13:27 by Kam Franco) Gout (Resolved) Ileus (Acute) Cholelithiasis (Acute) Sinusitis, acute (Acute) 68-year-old male status post laparoscopic cholecystectomy 1. Patient had acute cholecystitis and had his gallbladder removed yesterday. He had a very large colon during surgery indicating ileus. He is not passing any flatus yet but he is not having any nausea or vomiting. I would continue n.p.o. status until he is passing flatus and feeling better and then he can have his diet advanced as tolerated. Harrison Vallejo MD Pager: [facility] [address] [place] [address] [address] [place] [address] Office:
[2019-08-10 09:02] VITALS: BP 111/69; PULSE 77; RESP 18; TEMP 37; O2SAT 96
[2019-08-10] MEDS: Enoxaparin 40 MG/0.4 ML Syringe SC (10:32)
[2019-08-10 15:00] VITALS: BP 120/65; PULSE 64; RESP 18; TEMP 36.9; O2SAT 93
--- NOTE | 2019-08-10 15:31 | NUR.TO.PHY ---
PT HAS BEEN AMBULATING IN [facility] MULTIPLE TIMES. + FLATUS. DENIES NAUSEA. DR ANNE MADE AWARE. NO NEW ORDERS @ THIS TIME.
--- NOTE | 2019-08-10 16:24 | NURSING ---
DR FERNANDO MADE AWARE OF PT +FLATUC. NEW ORDER FOR CLEAR LIQUIDS ADV TO REG TOLERATED.
[2019-08-10 20:11] VITALS: BP 132/75; PULSE 65; RESP 16; TEMP 37.2; O2SAT 96
[2019-08-10] MEDS: HYDROmorphone 1 MG/ML Syringe IV (20:14)
[2019-08-11 02:10] VITALS: BP 116/63; PULSE 58; RESP 16; TEMP 36.7; O2SAT 99
[2019-08-11] MEDS: 0.9% Normal Saline 1,000 ML 125 ML IV (04:19)
--- NOTE | 2019-08-11 07:28 | PN.SURG_ITS ---
Patient Problems: Active and Suspected Problems (Last Updated 06/24/19 @ 13:27 by Kam Franco) Ileus (Acute) Cholelithiasis (Acute) Subjective: Patient passed flatus and is tolerating clear liquid diet. He is not having much abdominal pain except for some incisional pain today. No nausea or vomiting. - Physical Exam Vitals/I&O's: Vital Signs Temp Pulse Resp BP Pulse Ox 98.1 F 58 L 16 116/63 99 08/11/19 02:10 08/11/19 02:10 08/11/19 02:10 08/11/19 02:10 08/11/19 02:10 Oxygen Flow Rate (L/min) 2 Oxygen Delivery Method Nasal Cannula Weight: 205 lb 0.478 oz Body Mass Index (BMI) 31.1 Intake and Output for Last 24 Hours 08/09/19 08/10/19 08/11/19 23:59 23:59 23:59 Intake Total 3044.17 / 3044.17 3381.67 / 3381.67 1000 / 1000 Output Total 0 / 0 Balance 3044.17 / 3044.17 3381.67 / 3381.67 1000 / 1000 General: Alert, Oriented x3 Lungs: Normal air movement Abdomen: Soft, Non Tender, Non-Distended Current Medications Enoxaparin Sodium (Lovenox) 40 mg SC DAILY [facility] Last Admin: 08/10/19 10:32 Dose: 40 mg Documented by: Hydromorphone HCl (Dilaudid Inj) 1 mg IV Q2H PRN PRN PRN Reason: Pain or Fever Last Admin: 08/10/19 20:14 Dose: 1 mg Documented by: Ondansetron HCl (Zofran) 4 mg IV Q8H PRN PRN PRN Reason: NAUSEA/VOMITING Sodium Chloride () 10 - 40 ml IV UD PRN PRN Reason: SALINE FLUSH Medical Necessity - Tobacco Use Smoking Status: Former smoker Tobacco Use: Cigarettes Assessment/Plan All Active Problems (Last Updated 06/24/19 @ 13:27 by Kam Franco) Gout (Resolved) Ileus (Acute) Cholelithiasis (Acute) Sinusitis, acute (Acute) 68-year-old male status post laparoscopic cholecystectomy for acute cholecystitis 1. Patient appears to be doing well. His postoperative ileus has resolved. He is passing flatus and tolerating clear liquid diet. Try regular diet today and if he tolerates this he may be discharged home. He will follow-up with me in 2 weeks. Harrison Vallejo MD Pager: [facility] [address] [place] [address], [address] [place] [address] Office:
--- NOTE | 2019-08-11 07:31 | PCM.DC.GB ---
Discharge Diet: Light diet - advance as tolerated Discharge Activity: Return to Normal Activity, May Not Drive - for 2-3 days or while taking narcotic pain medicataions., - - Do not drive, work heavy equipment or sign legal documents for 24 hours. May shower in (days): 1 - with the bandage in place. Lifting Restrictions: 20 lbs for 2 weeks Additional Activity Instructions:: Pain medication may cause nausea. You should typically eat light foods as you take your pain medications. Pain medication may also cause constipation. If this is a problem for you, please discuss with your doctor. Call your doctor if your incision/area has: Continuous Slow Oozing, Sudden Increased Bleeding, Increased Pain/ Swelling, Increased Redness, Foul Smelling Discharge, Fever of 101 or Higher Call your doctor if you observe: Fever of 101 or Higher Suture Line Care: Avoid Pulling/Pushing, Avoid Pinching/Bending Additional Dressing/Incision Instructions:: Leave operative bandaids on for 2 days. When you remove dressing, leave Steri-Strips on until your follow-up appointment, or until the Steri-Strips fall off on their own. Allergies/Adverse Reactions: Allergies No Known Allergies Allergy (Verified 08/09/19 00:56) Medications to take at Discharge terazosin 10 mg capsule 10 mg PO DAILY 06/24/19 Atorvastatin Calcium [Lipitor] 20 mg PO QHS 08/09/19 Diclofenac Sodium [Voltaren] 2 g TOPICAL TID PRN PRN 08/09/19 Docusate Sodium [Stool Softener] 100 mg PO DAILY 08/09/19 Acetaminophen [Tylenol Tablet] 650 mg PO Q4H PRN PRN tablet 08/11/19 Oxycodone [Oxyir] 5 - 10 mg PO Q4H PRN PRN 7 Days #30 tablet 08/11/19 The following prescriptions were given: Oxycodone [Oxyir] 5 - 10 mg PO Q4H PRN PRN 7 Days #30 tablet PRN Reason: Pain Score 4-10/10 Transmission Status: Sent to [facility] Primary Care Physician: Franko Haque MD [Primary Care Provider] - Test Results: Test results from this visit will be discussed in further detail at your follow-up appointment, if applicable. Please Follow Up With: Harrison Vallejo MD When: Please call to schedule 2 week follow up appointment. [phone]
[2019-08-11 08:18] VITALS: BP 98/52; PULSE 60; RESP 18; TEMP 37; O2SAT 97
--- NOTE | 2019-08-11 11:30 | PCM.DC ---
- Discharge Diagnoses Current Active Problems: Current Active and Chronic Problems (Last Updated 06/24/19 @ 13:27 by Kam Franco) Acute cholecystitis (Acute) Ileus (Acute) Cholelithiasis (Acute) You will use the following diet at home:: Cardiac Your food should be the consistency of: Regular Discharge Activity: Return to Normal Activity, May Not Drive - for 2-3 days or while taking narcotic pain medicataions., - - Do not drive, work heavy equipment or sign legal documents for 24 hours. May shower in (days): 1 - with the bandage in place. Additional Activity Instructions:: Pain medication may cause nausea. You should typically eat light foods as you take your pain medications. Pain medication may also cause constipation. If this is a problem for you, please discuss with your doctor. Call your doctor if your incision/area has: Continuous Slow Oozing, Sudden Increased Bleeding, Increased Pain/ Swelling, Increased Redness, Foul Smelling Discharge, Fever of 101 or Higher Call your doctor if you observe: Fever of 101 or Higher, Numbness or Tingling, Inability to urinate, Inability to have a bowel movement, Shortness of breath, Dizziness, Fainting spells, Swelling in the ankles, Chest pain, Prolonged hiccoughing, Increased palpitations (irregular heartbeat), Calf discomfort, Uncontrolled pain Suture Line Care: Avoid Pulling/Pushing, Avoid Pinching/Bending Additional Dressing/Incision Instructions:: Leave operative bandaids on for 2 days. When you remove dressing, leave Steri-Strips on until your follow-up appointment, or until the Steri-Strips fall off on their own. Allergies/Adverse Reactions: Allergies No Known Allergies Allergy (Verified 08/09/19 00:56) Medications to take at Discharge terazosin 10 mg capsule 10 mg PO DAILY 06/24/19 Atorvastatin Calcium [Lipitor] 20 mg PO QHS 08/09/19 Diclofenac Sodium [Voltaren] 2 g TOPICAL TID PRN PRN 08/09/19 Docusate Sodium [Stool Softener] 100 mg PO DAILY 08/09/19 Acetaminophen [Tylenol Tablet] 650 mg PO Q4H PRN PRN tab 08/11/19 Oxycodone [Oxyir] 5 - 10 mg PO Q4H PRN PRN 7 Days #30 tab 08/11/19 The following prescriptions were given: Oxycodone [Oxyir] 5 - 10 mg PO Q4H PRN PRN 7 Days #30 tab PRN Reason: Pain Score 4-10/10 Transmission Status: Received by [facility] Primary Care Physician: Franko Haque MD [Primary Care Provider] - Please follow up with your Primary Care Physician in: in 2 week Test Results: Test results from this visit will be discussed in further detail at your follow-up appointment, if applicable. Please Follow Up With: Harrison Vallejo MD When: Please call to schedule 2 week follow up appointment. [phone]
--- NOTE | 2019-08-11 12:32 | DS.PCM_ITS ---
Discharge Date and Diagnosis - Problem List Patient Problems: Active and Suspected Problems (Last Updated 06/24/19 @ 13:27 by Kam Franco) Acute cholecystitis (Acute) Ileus (Acute) Cholelithiasis (Acute) Date of Admission: 08/09/19 Date of Discharge: 08/11/19 - Primary Discharge Diagnosis Active and Suspected Problems (Last Updated 06/24/19 @ 13:27 by Kam Franco) Acute cholecystitis (Acute) Ileus (Acute) Cholelithiasis (Acute) - Secondary Discharge Diagnosis Chronic Problems (Last Updated 06/24/19 @ 13:27 by Kam Franco) Arthritis (Chronic) High cholesterol (Chronic) Hospital Course and Treatment Summary of Care Provided: The patient is a 68 year old M Patient is a 68-year-old gentleman admitted with abdominal pain but no nausea vomiting or diarrhea. Diagnosed with gallstone ileus on CT scan. General surgery consulted patient underwent laparoscopic cholecystectomy findings included acute cholecystitis. 1. Acute cholecystitis Patient underwent laparoscopic cholecystectomy on 08/09/2018. Patient was started on clear liquids and tolerated well then advance to regular diet and he tolerated well. 2. Small bowel ileus secondary to acute cholecystitis: ?Patient managed conservatively with bowel rest fluids. Patient passed flatus. Diet gradually advanced from clear liquid to regular diet. 3. Legal blindness ?Supportive care in addition to fall precautions 4. Dyslipidemia ?Patient is on atorvastatin home plan is to resume once patient resumes oral diet 5. DVT prophylaxis Patient is on enoxaparin Discharge medication reconciliation done. Discharge follow-up instructions completed. Discharge process discussed with the patient and all questions were answered to patient's satisfaction. Patient given a prescription for oxycodone by surgeon and advised follow-up in clinic in 2 weeks. Total time spent, exact 35 minutes on discharge meds reconciliation, examination, coordination of care with nurses and ancillary staff, review of imaging and blood test and discussion with the patient on follow-up instructions Clinical Impression(s) from Imaging Studies Abdomen/Pelvis CT 08/09/19 01:12 IMPRESSION: Localized ileus of the proximal small bowel. Differential diagnosis includes nonspecific gastroenteritis and less likely early/partial small bowel obstruction. No acute appendicitis. Solitary gallstone with overdistention of the gallbladder otherwise abdominal viscera are unremarkable. KUB X-Ray 08/09/19 09:05 IMPRESSION: The tip of the nasogastric tube is in the body of the stomach. Cholangiogram 08/09/19 10:30 IMPRESSION: Unremarkable intraoperative cholangiogram. Patient Problems: Active and Suspected Problems (Last Updated 06/24/19 @ 13:27 by Kam Franco) Acute cholecystitis (Acute) Ileus (Acute) Cholelithiasis (Acute) Subjective: Seen and examined. Patient is having breakfast. Mild abdominal distention. Did not had bowel movement but passing flatus. No abdominal pain. No fever or chills. - Physical Exam Vitals/I&O's: Vital Signs Temp Pulse Resp BP Pulse Ox 98.6 F 60 18 98/52 L 97 08/11/19 08:18 08/11/19 08:18 08/11/19 08:18 08/11/19 08:18 08/11/19 08:18 Oxygen Flow Rate (L/min) 2 Oxygen Delivery Method Room Air Weight: 205 lb 0.478 oz Body Mass Index (BMI) 31.1 Intake and Output for Last 24 Hours 08/09/19 08/10/19 08/11/19 23:59 23:59 23:59 Intake Total 3044.17 / 3044.17 3381.67 / 3381.67 1497.92 / 1497.92 Output Total 0 / 0 Balance 3044.17 / 3044.17 3381.67 / 3381.67 1497.92 / 1497.92 General: Alert, Oriented x3, Cooperative HEENT: Atraumatic, PERRLA, EOMI, Normocephalic, - - Legally blind. Neck: Supple, No JVD, Negative Carotid Bruits Lungs: Clear to auscultation, Normal air movement Cardiovascular: Regular rate, Regular Rhythm, Normal S1, Normal S2, No murmurs Abdomen: Bowel Sounds Present, Soft, Non Tender, Distended - Mild distention but soft. Extremities: No cyanosis, No edema, Capillary Refill Less than 3 Seconds Skin: No rashes, No breakdown Musculoskeletal: No Tenderness to Palpation of Joints or Extremities, Arthritic Changes Neurological: Cranial nerves II-XII grossly intact Psych/Mental Status: Normal Affect, Appropriate Current Medications Acetaminophen (Tylenol) 650 mg PO Q4H PRN PRN PRN Reason: Pain 1-10 or Fever Docusate Sodium (Colace) 100 mg PO BID OSIEL Enoxaparin Sodium (Lovenox) 40 mg SC DAILY [facility] Last Admin: 08/10/19 10:32 Dose: 40 mg Documented by: Hydromorphone HCl (Dilaudid Inj) 1 mg IV Q2H PRN PRN PRN Reason: Pain Score 4-10/10 Last Admin: 08/10/19 20:14 Dose: 1 mg Documented by: Ondansetron HCl (Zofran) 4 mg IV Q8H PRN PRN PRN Reason: NAUSEA/VOMITING Oxycodone HCl (Oxyir) 5 - 10 mg PO Q4H PRN PRN PRN Reason: Pain Score 4-10/10 Sodium Chloride () 10 - 40 ml IV UD PRN PRN Reason: SALINE FLUSH Discharge Diet: Light diet - advance as tolerated Discharge Activity: Return to Normal Activity, May Not Drive - for 2-3 days or while taking narcotic pain medicataions., - - Do not drive, work heavy equipment or sign legal documents for 24 hours. May shower in (days): 1 - with the bandage in place. Additional Activity Instructions:: Pain medication may cause nausea. You should typically eat light foods as you take your pain medications. Pain medication may also cause constipation. If this is a problem for you, please discuss with your doctor. Call your doctor if your incision/area has: Continuous Slow Oozing, Sudden Increased Bleeding, Increased Pain/ Swelling, Increased Redness, Foul Smelling Discharge, Fever of 101 or Higher Call your doctor if you observe: Fever of 101 or Higher, Numbness or Tingling, Inability to urinate, Inability to have a bowel movement, Shortness of breath, Dizziness, Fainting spells, Swelling in the ankles, Chest pain, Prolonged hiccoughing, Increased palpitations (irregular heartbeat), Calf discomfort, Uncontrolled pain Suture Line Care: Avoid Pulling/Pushing, Avoid Pinching/Bending Additional Dressing/Incision Instructions:: Leave operative bandaids on for 2 da ys. When you remove dressing, leave Steri-Strips on until your follow-up appointment, or until the Steri-Strips fall off on their own. Home Medications: Medications to take at Discharge terazosin 10 mg capsule 10 mg PO DAILY 06/24/19 Atorvastatin Calcium [Lipitor] 20 mg PO QHS 08/09/19 Diclofenac Sodium [Voltaren] 2 g TOPICAL TID PRN PRN 08/09/19 Docusate Sodium [Stool Softener] 100 mg PO DAILY 08/09/19 Acetaminophen [Tylenol Tablet] 650 mg PO Q4H PRN PRN tab 08/11/19 Oxycodone [Oxyir] 5 - 10 mg PO Q4H PRN PRN 7 Days #30 tab 08/11/19 Following Prescrptions Were Given to Patient: Oxycodone [Oxyir] 5 - 10 mg PO Q4H PRN PRN 7 Days #30 tab PRN Reason: Pain Score 4-1010 Transmission Status: Received by [facility] Primary Care Physician: Franko Haque MD [Primary Care Provider] - Please follow up with your Primary Care Physician in: in 2 week Please Follow Up With: Harrison Vallejo MD When: Please call to schedule 2 week follow up appointment. [phone] Medical Necessity - Tobacco Use Smoking Status: Former smoker Tobacco Use: Cigarettes Meaningful Use Info Meaningful Use Diagnoses (Choose all that apply): None applicable Code Visit Inpatient E&M: 69312 Disch Hosp
[2019-08-11] MEDS: Enoxaparin 40 MG/0.4 ML Syringe SC (13:06)
[2019-08-11] MEDS: Docusate Sodium 100 MG Capsule PO (13:08)
[2019-08-11 13:18] VITALS: BP 110/65; PULSE 66; RESP 16; TEMP 37; O2SAT 98
== END 2019-08-11 13:23 | disposition home or self-care (01) | DRG 418 ==
LOC: ED 03:43 → PCU 04:14 → MS3 18:55
PROVIDERS: Surgery; Admitting Provider Family Medicine; Emergency Provider Emergency Medicine; PCP Family Medicine; Visit Provider Internal Medicine
PROC: 0FT44ZZ Resection of Gallbladder, Percutaneous Endoscopic Approach (ICD-10-PCS; CPT 47610; principal; 2019-08-09 10:40)
DX: K80.00 Calculus of gallbladder with acute cholecystitis without obstruction (principal); K56.3 Gallstone ileus; H54.8 Legal blindness, as defined in USA; Z87.891 Personal history of nicotine dependence; M10.9 Gout, unspecified; M19.90 Unspecified osteoarthritis, unspecified site; E78.00 Pure hypercholesterolemia, unspecified; Z79.899 Other long term (current) drug therapy
CPT/HCPCS: 36415; 74018; 74177; 74300; 76000; 80048; 80053; 80076; 81001; 83690; 84484; 85025; 88304; 93005; 97162; 97165; 99285; J7030; J7120; Q9967; A4216; J2405

== ENCOUNTER → 2019-12-27 11:51 | Outpatient (CLI) | payer MEDICARE, MEDICAID, SELFPAY ==
[2019-08-09 09:16] VITALS: BMI 31.1
--- NOTE | 2019-12-27 11:56 | RAD_ITS ---
STUDY: X-RAY - RIGHT HAND REASON FOR EXAM: Male, 69 years old. Pain x4 days TECHNIQUE: 3 view(s) of the hand. COMPARISON: None. FINDINGS: Normal radiocarpal articulation. Normal distal radioulnar joint. Normal visualized carpal bones. Normal carpal articulations There is degenerative arthrosis of the carpometacarpal (CMC) articulation of the thumb. Normal second through fifth carpometacarpal joints. Normal metacarpi. There is mild arthrosis of the metacarpophalangeal (MCP) joints. There is mild interphalangeal joint space narrowing.. Normal proximal and distal phalanges of the thumb. There is mild arthrosis of the metacarpophalangeal (MCP) joints. There is diffuse articular joint space narrowing of the proximal and distal interphalangeal joints of the second through fifth fingers, but without erosive changes or periarticular soft tissue swelling. Normal phalanges of the second through fifth fingers. The soft tissue structures are unremarkable. RAD/Hand Min 3 Views IMPRESSION: Polyarticular arthrosis without evidence for fracture or suspicious osseous lesion Electronically Signed: Raymond Pinedo MD at 16:52 EDT , Service support ,
[2019-12-27 15:14] LABS: Absolute Lymphocyte Count 1.76 X10^3/uL (0.83-4.51); Absolute Neutrophil Count 3.6 X10^3/uL (2.0-7.7); Basophil# 0.02 X10^3/uL; Basophil% 0.3 % (0-1); Eosinophil# 0.15 X10^3/uL; Eosinophils% 2.5 % (0-5); Hematocrit 40.7 % (40-54); Hemoglobin 13.8 g/dL (13.0-16.5); Lymphocyte # 1.76 X10^3/ul (4.0); Lymphocyte % 29.4 % (19-41); Mean Corp Hgb Conc 33.9 g/dL (32-36); Mean Corpuscular Hgb 30.5 pg (27.0-32.0); Mean Platelet Vol. 9.8 fl (6.2-12.0); Monocyte# 0.46 X10^3/uL; Monocyte% 7.7 % (0-10); NRBC Flagged by Analyzer 0 % (0-5); Neutrophil # 3.56 X10^3/uL (2.7-7.7); Neutrophil % 59.6 % (47-70); Platelet Count 249 K/mm3 (150-450); RBC Distribution Width CV 12.2 % (11.6-14.6); RBC Distribution Width SD 39.4 fl (35.1-43.9); Red Blood Count 4.52 M/mm3 (4.6-6.2)
[2019-12-27 15:27] LABS: CRP < 2.90 mg/L (0.0-3.0); Rheumatoid Factor < 10.0 IU/mL (<15); Uric Acid 5.2 mg/dL (3.5-7.2)
[2019-12-27 15:45] LABS: Erythrocyte Sedimentation Rate 5 mm/hr (0-20)
[2019-12-30 12:47] LABS: ANTINUCLEAR ANTIBODIES DIRECT Negative (Negative)
== END ==
PROVIDERS: PCP Family Medicine; Referring Provider Family Medicine; Visit Provider Family Medicine
DX: M79.641 Pain in right hand (principal); M25.50 Pain in unspecified joint
CPT/HCPCS: 36415; 73130; 84550; 85025; 85652; 86038; 86140; 86431

== ENCOUNTER → 2020-03-09 15:42 | Outpatient (CLI) | payer MEDICARE, MEDICAID, SELFPAY ==
[2019-08-09 09:16] VITALS: BMI 31.1
== END ==
PROVIDERS: PCP Family Medicine; Referring Provider Family Medicine; Visit Provider Family Medicine
DX: R43.0 Anosmia (principal)
CPT/HCPCS: 87635; U0003

== ENCOUNTER → 2020-05-10 11:15 | Outpatient (CLI) | payer MEDICARE, SELFPAY ==
--- NOTE | 2020-05-10 11:18 | RAD_ITS ---
STUDY: X-RAY - SOFT TISSUE NECK REASON FOR EXAM: Male, 69 years old. Pt feels like throat gets tight and feels like he cannot breathe off and on TECHNIQUE: AP and lateral view(s) of the neck were obtained. COMPARISON: None. FINDINGS: Normal visualized nasopharynx, oropharynx, hypopharynx. Normal epiglottis. Normal visualized subglottic tracheal air column. Normal prevertebral soft tissue structures. There are degenerative changes of the cervical spine with cervical spondylosis. Loss of the normal cervical lordosis. The soft tissue structures are unremarkable. RAD/Neck for Soft Tissue IMPRESSION: Multilevel disc space narrowing and spondylosis. Electronically Signed: Teo Menchaca, at 15:42 EDT , Service support ,
== END ==
PROVIDERS: PCP Family Medicine; Referring Provider Physician Assistant; Visit Provider Physician Assistant
DX: R07.0 Pain in throat (principal)
CPT/HCPCS: 70360

== ENCOUNTER → 2020-08-08 09:43 | Outpatient (CLI) | payer MEDICARE, SELFPAY ==
[2020-08-08 13:48] LABS: Anion Gap 6 (5-15); BUN 17 mg/dL (7-18); BUN/Creat Ratio 16.8 RATIO (10-20); Calcium,Total 9.1 mg/dL (8.5-10.1); Chloride 108 mmol/L (98-107); Cholesterol 227 mg/dL (200); Creatinine, Serum 1.01 mg/dL (0.70-1.30); EST Glomerular Filtration Rate 77 mL/min (>60); Est Glom Filt Rate - Afr Amer 94 mL/min (>60); Glucose 92 mg/dL (74-106); High Density Lipoprotein 50 mg/dL; PSA,Total - Annual Screen 0.73 ng/mL (0.00-4.00); Sodium Level 140 mmol/L (136-145); Triglycerides 239 mg/dL; Very Low Density Lipoprotein 48 mg/dL (5-40)
== END ==
PROVIDERS: PCP Family Medicine; Referring Provider Family Medicine; Visit Provider Family Medicine
DX: E66.9 Obesity, unspecified (principal); N40.0 Benign prostatic hyperplasia without lower urinary tract symptoms; M79.641 Pain in right hand
CPT/HCPCS: 36415; 80048; 80061; 84153; G0103

== ENCOUNTER 2021-09-30 09:24 | Outpatient (CLI) | payer MEDICARE, SELFPAY ==
[2021-09-30 10:39] LABS: Anion Gap 4 (5-15); BUN 20 mg/dL (7-18); BUN/Creat Ratio 16.1 RATIO (10-20); Calcium,Total 9.3 mg/dL (8.5-10.1); Chloride 110 mmol/L (98-107); Cholesterol 266 mg/dL (200); Creatinine, Serum 1.24 mg/dL (0.70-1.30); EST Glomerular Filtration Rate 61 mL/min (>60); Est Glom Filt Rate - Afr Amer 74 mL/min (>60); Glucose 111 mg/dL (74-106); High Density Lipoprotein 50 mg/dL; PSA,Total - Annual Screen 0.71 ng/mL (0.00-4.00); Sodium Level 140 mmol/L (136-145); Triglycerides 161 mg/dL; Very Low Density Lipoprotein 32 mg/dL (5-40)
== END 2021-09-30 23:59 | disposition home or self-care (01) ==
LOC: MFPLAB 09:28
PROVIDERS: PCP Family Medicine; Referring Provider Family Medicine; Visit Provider Family Medicine
DX: R10.13 Epigastric pain (principal); E78.5 Hyperlipidemia, unspecified; N40.0 Benign prostatic hyperplasia without lower urinary tract symptoms; Z12.5 Encounter for screening for malignant neoplasm of prostate
CPT/HCPCS: 36415; 80048; 80061; 84153; G0103

== ENCOUNTER 2021-11-01 07:21 | Day surgery (SDC) | payer MEDICARE, MEDICAID, SELFPAY ==
--- NOTE | 2021-11-01 | COLBX_PTH ---
PATIENT: BENEDICTO DAVIS LOC: EN U#:[id number] AGE/SX: 71/M ROOM: RE11/01/[address]: Dr. Harrison Vallejo MD : 1950 BED: DIS: 11/01/2021 SPEC #: [id number] RECD: 11/01/21 12:52 STATUS: HARPREET DODSON #: [id number] KAVITA: 11/01/21 00:[address]: Harrison Vallejo DEPT: SURGICAL PATHOLOGY RECD BY: Daniel Gorman ENTERED: 11/01/21 12:53 SP TYPE: COLON BX OTHR DR: Dr. Tl Haque MD Tissues: Rectum, NOS Procedures: Surgery Specimen Level IV HEADER OPERATION: Colonoscopy ? open access (MAC), biopsy of polyp PRE-OP DIAGNOSIS: Screening, history of polyps TISSUE SUBMITTED: Rectal polyp biopsy MICROSCOPIC DIAGNOSIS Rectal polyp, biopsy: Hyperplastic polyp. SJ:victor manuel 11/04/2021 MICROSCOPIC DESCRIPTION Slides are reviewed. GROSS DESCRIPTION Received in fixative is one container labeled with the patient's name and designated rectal polyp biopsy. The specimen consists of one irregular fragment of light hays soft tissue that measures 0.2 x 0.2 x 0.1 cm. The specimen is totally submitted in one cassette. / SJ:rg 11/01/2021 TC:1 CPT: 67040
[2021-11-01 07:47] VITALS: BP 142/58; PULSE 85; RESP 16; TEMP 36.1; O2SAT 94; BMI 32.1
[2021-11-01] MEDS: Lactated Ringers 1,000 ML 15 ML IV (07:51)
--- NOTE | 2021-11-01 09:51 | OP.COLON_ITS ---
Patient Name: Josh Strickland Procedure Date: 11/01/2021 8:40 AM Date of : 1950 Age: 71 Procedure: Colonoscopy Indications: High risk colon cancer surveillance: Personal history of colonic polyps Providers: Harrison Vallejo MD Medicines: Monitored Anesthesia Care Patient Profile: This is a 71 year old male. Refer to note in patient chart for documentation of history and physical. Last Colonoscopy: 5 years ago. Complications: No immediate complications. Procedure: Pre-Anesthesia Assessment: - Prior to the procedure, a History and Physical was performed, and patient medications and allergies were reviewed. The patient's tolerance of previous anesthesia was also reviewed. The risks and benefits of the procedure and the sedation options and risks were discussed with the patient. All questions were answered, and informed consent was obtained. Prior Anticoagulants: The patient has taken no previous anticoagulant or antiplatelet agents. After reviewing the risks and benefits, the patient was deemed in satisfactory condition to undergo the procedure. After I obtained informed consent, the scope was passed under direct vision. Throughout the procedure, the patient's blood pressure, pulse, and oxygen saturations were monitored continuously. The Colonoscope was introduced through the anus and advanced to the cecum, identified by appendiceal orifice and ileocecal valve. The colonoscopy was performed without difficulty. The patient tolerated the procedure well. The quality of the bowel preparation was good. Scope In: 9:32:54 AM Scope Withdrawal Time 0 hours 6 minutes 13 seconds Scope Out: 9:47:38 AM Total Procedure Duration Time 0 hours 14 minutes 44 seconds Findings: A small polyp was found in the sigmoid colon. The polyp was removed with a cold biopsy forceps. Resection and retrieval were complete. The exam was otherwise without abnormality on direct and retroflexion views. Impression: - One small polyp in the sigmoid colon, removed with a cold biopsy forceps. Resected and retrieved. - The examination was otherwise normal on direct and retroflexion views. Recommendation: - Discharge patient to home. - Resume previous diet. - Continue present medications. - Await pathology results. - Repeat colonoscopy in 5 years for surveillance based on pathology results. Procedure Code(s): --- Professional --- 03512, Colonoscopy, flexible; with biopsy, single or multiple Diagnosis Code(s): --- Professional --- Z86.010, Personal history of colonic polyps D12.5, Benign neoplasm of sigmoid colon CPT copyright 2017 [employer]. All rights reserved. The codes documented in this report are preliminary and upon job press operator review may be revised to meet current compliance requirements. Harrison Vallejo MD 11/01/2021 9:50:48 AM This report has been signed electronically. Number of Addenda: 0 Note Initiated On: 11/01/2021 8:40 AM
--- NOTE | 2021-11-01 09:51 | H&P.OPEN ---
HPI - General HPI Narrative BENEDICTO DAVIS, is a 71 M who presents for surveillance colonoscopy. The patient has last colonoscopy 5 years ago. 5 polyps were found. Patient does not have any abdominal pain or blood in his stool. Patient denies family history of colon cancer. [facility] Medical History (Updated 11/01/21 @ 09:[address] Harrison Vallejo MD) Ambulates with cane Back pain CPAP (continuous positive airway pressure) dependence Former smoker headaches Heartburn History of arthritis History of gout Legally blind Neck pain Prostate disease Shoulder pain Sleep apnea Umbilical hernia Home Medications terazosin 10 mg capsule 10 mg PO DAILY 06/24/19 [History Last Taken Unknown] albuterol sulfate 90 mcg/actuation aerosol inhaler 2 puff INHALATION Q6H PRN #6.7 g 11/25/20 [Rx Last Taken Unknown] famotidine 40 mg PO DAILY 10/31/21 [History Last Taken Unknown] meloxicam 15 mg PO DAILY 10/31/21 [History Last Taken Unknown] tamsulosin 0.4 mg PO DAILY 10/31/21 [History Last Taken Unknown] Allergy/AdvReac Type Severity Reaction Status Date / Time No Known Allergies Allergy Verified 11/01/21 07:47 Surgical History (Updated 10/31/21 @ 09:35 by Mariaa Duncan) History of cholecystectomy History of hernia repair History of shoulder surgery Social History Smoking Status: Former smoker alcohol intake: never Past Medical/Surgical History Planned Operation Planned Operative Procedure/s: colonoscopy Previous Hospitalizations/Surgeries HX Hospitalizations: No HX of Surgeries: shoulder sx Any Problems With Anesthesia: No You/Your Family Experience Fever (Hyperthermia) With Anes: No Cholinesterase deficiency: No Cardiovascular Hx Chest Pain within Last 2 months: No Hx of Irregular Heartbeat and/or Afib: No Hx Heart Attack: No Hx Congestive Heart Failure: No Hx Rheumatic Fever: No Hx Hypertension: No Hx Internal Defibrillator: No Hx Pacemaker: No Hx Cardiac Catheterization: No Hx Cardiac Surgery/Stents/Etc.: No Hx Stress Test: Yes Hx Pain in Legs when Walking/Leg Cramps: No Respiratory HX of Shortness of Breath: No Hoarseness: No Hx Chronic Obstructive Pulmonary Disease (COPD): No Hx Asthma: No Hx Emphysema: No Hx Sleep Apnea: Yes CPAP: Yes BIPAP: No Hx Respiratory Tract Infection/Cold (presently): No Result (for STOP score): Positive Hx Smoking: No Smoking Status: Former smoker Gastrointestinal Hx Gastroesophageal Reflux: No Controlled With Meds: No Hx Gastrointestinal Disorders: No Hx Gastrointestinal Bleed: No Hx Ulcer: No Hx Hiatal Hernia: No Difficulty Chewing/Swallowing: No Hx Unplanned Weight Loss of 20#: No Neurological Hx Seizures: No HX Syncope/Blackout Spells/Unconsciousness: No Hx Multiple Sclerosis: No Hx Parkinson's Disease: No Hx Head/Neck Injury: No Hx Headaches: No Hx Back Injury/Pain: No Restless Legs: No Does patient have nerve stimulator: No Blood Disorder Hx Leukemia: No Bleeding Tendencies: No Hx Deep Vein Thrombosis: No Hx High Cholesterol: Yes Hx Hepatitis: Yes (7 years old.) Hx Cirrhosis: No Hx Anemia: No Hx Blood Disorders: No Reproduction : No Genitourinary Hx Renal Disease: No Hx Dialysis: No Musculoskeletal Hx Arthritis: Yes (Hands, shoulders.) Hx Rheumatoid Arthritis: No Endocrine Hx Diabetes: No Insulin: No Thyroid Disease: No Hx Steroid Therapy: No Psycho/Social Hx Substance Use: No Hx Alcohol Use: No Hx Anxiety: No Hx Depression: No Mental Illness: No Hx Dementia: No Miscellaneous Hx Cancer: No Recent Exposure to Contagious Disease: No Any Loose Teeth: No Allergies No Known Allergies Allergy (Verified 11/01/21 07:47) Maternal: No pertinent history Discharge Is Pt Admitted From a Halfway, or a Jail: No Who Could Help: After D/C, Where Do you Plan to Go: Return Home From the [facility] History Number of Risk Factors: 2 Vital Signs Vital Signs Vital Signs: 11/01/21 07:47 Temperature 97.0 F L Temperature Source Temporal Pulse Rate 85 Respiratory Rate 16 Respiratory Pattern Normal Blood Pressure 142/58 H Blood Pressure Mean 86 Blood Pressure Source Monitor Blood Pressure Position Sitting Blood Pressure Location Left Arm Pulse Ox 94 Oxygen Delivery Method Room Air Weight Weight: 205 lb 0.478 oz Body Mass Index (BMI) 32.1 Physical Exam Const alert and oriented x3 Resp normal respiratory effort and normal air movement Cardio regular rate and regular rhythm GI soft to palpation, non-tender and non-distended Assessment & Plan Assessment/Plan (1) Encounter for screening for malignant neoplasm of colon: (2) History of colon polyps: PLAN: Patient here for surveillance colonoscopy for history of colon polyps. I explained endoscopy in detail to the patient. I explained the risks including but not limited to stroke or heart attack with anesthesia, perforation of the GI tract, bleeding, infection. I explained that any of these could necessitate further emergency surgery. The patient understands and all questions were answered sufficiently. The patient wishes to proceed with procedure. Harrison Vallejo MD Pager: [facility] [address] [place] [address] [address] [place] [address] Office: Surgery Risks - Colonoscopy Risks Include but are not Limited To: Risks include but are not limited to: Bleeding, perforation requiring further surgery, inability to complete colonoscopy requiring barium enema.
--- NOTE | 2021-11-01 09:52 | OP.CCLET_ITS ---
11/01/2021 Franko Haque [address] [place] [address] Re : Colonoscopy procedure for Josh Strickland Dear Dr. Haque This procedure was performed on Monday, November 01, 2021. My impressions and recommendations are as follows: Impressions : - One small polyp in the sigmoid colon, removed with a cold biopsy forceps. Resected and retrieved. - The examination was otherwise normal on direct and retroflexion views. Recommendations : - Discharge patient to home. - Resume previous diet. - Continue present medications. - Await pathology results. - Repeat colonoscopy in 5 years for surveillance based on pathology results. My findings are described in the full procedure note, which is enclosed. If I can be of further assistance, please feel free to contact me at Doctor phone number(s): , Work: . Sincerely, Harrison Vallejo MD 11/01/2021 9:50:48 AM This report has been signed electronically.
[2021-11-01 09:53] VITALS: BP 142/58; BP 94/39; PULSE 56; RESP 16; TEMP 36.2; O2SAT 100
[2021-11-01 10:00] VITALS: BP 142/58; BP 95/48; PULSE 55; RESP 16; O2SAT 98
[2021-11-01 10:05] VITALS: BP 107/58; BP 142/58; PULSE 54; RESP 16; O2SAT 97
[2021-11-01 10:10] VITALS: BP 113/56; BP 142/58; PULSE 54; RESP 16; TEMP 36.1; O2SAT 98
[2021-11-01 10:25] VITALS: BP 142/58
== END 2021-11-01 10:46 | disposition home or self-care (01) ==
LOC: EN 07:22 → AC 07:24
PROVIDERS: PCP Family Medicine; Referring Provider Family Medicine; Visit Provider Surgery
PROC: 0DJD8ZZ Inspection of Lower Intestinal Tract, Via Natural or Artificial Opening Endoscopic (ICD-10-PCS; CPT 45378; principal; 2021-11-01 08:25)
DX: Z12.11 Encounter for screening for malignant neoplasm of colon (principal); Z86.010 Personal history of colon polyps; Z87.891 Personal history of nicotine dependence; D12.5 Benign neoplasm of sigmoid colon; Z99.89 Dependence on other enabling machines and devices; G47.30 Sleep apnea, unspecified
CPT/HCPCS: 45380; 87426; 88305; J7120; J2405

== ENCOUNTER 2022-10-10 10:17 | Outpatient (CLI) | payer MEDICARE, MEDICAID, SELFPAY ==
[2022-10-10 12:11] LABS: Hematocrit 38.3 % (40-54); Hemoglobin 13.1 g/dL (13.0-16.5); Mean Corp Hgb Conc 34.2 g/dL (32-36); Mean Corpuscular Hgb 30.5 pg (27.0-32.0); Mean Corpuscular Volume 89.3 fL (80-94); Mean Platelet Vol. 9.7 fl (6.2-12.0); Platelet Count 245 K/mm3 (150-450); RBC Distribution Width CV 12.2 % (11.6-14.6); RBC Distribution Width SD 39.3 fl (35.1-43.9); Red Blood Count 4.29 M/mm3 (4.6-6.2); White Blood Count 6.3 K/mm3 (4.4-11.0)
[2022-10-10 12:38] LABS: ALB/GLOB Ratio 1.2 RATIO (0.9-2.4); AST(SGOT) 23 U/L (15-37); Alanine Aminotransfer ALT/SGPT 27 U/L (16-61); Alkaline Phosphatase 56 U/L (45-117); Anion Gap 6 (5-15); BUN 25 mg/dL (7-18); BUN/Creat Ratio 14.9 RATIO (10-20); Calcium,Total 9.1 mg/dL (8.5-10.1); Chloride 108 mmol/L (98-107); Cholesterol 220 mg/dL (200); Creatinine, Serum 1.68 mg/dL (0.70-1.30); EST Glomerular Filtration Rate 43 mL/min (>60); Est Glom Filt Rate - Afr Amer 52 mL/min (>60); Globulin 3.3 g/dL (2.2-4.2); Glucose 106 mg/dL (74-106); High Density Lipoprotein 48 mg/dL; PSA,Total - Annual Screen 0.92 ng/mL (0.00-4.00); Potassium 4.1 mmol/L (3.5-5.1); Protein, Total 7.3 g/dL (6.4-8.2); Sodium Level 139 mmol/L (136-145); Triglycerides 170 mg/dL; Very Low Density Lipoprotein 34 mg/dL (5-40)
== END 2022-10-10 23:59 | disposition home or self-care (01) ==
LOC: MFPLAB 10:18
PROVIDERS: PCP Family Medicine; Referring Provider Family Medicine; Visit Provider Family Medicine
DX: K21.9 Gastro-esophageal reflux disease without esophagitis (principal); E78.00 Pure hypercholesterolemia, unspecified; N40.0 Benign prostatic hyperplasia without lower urinary tract symptoms; Z12.5 Encounter for screening for malignant neoplasm of prostate
CPT/HCPCS: 36415; 80053; 80061; 84153; 85027; G0103

== ENCOUNTER → 2023-02-17 | Outpatient (CLI) | payer MEDICARE, MEDICAID, SELFPAY ==
--- NOTE | 2023-02-17 12:40 | RAD_ITS ---
INDICATION: pain PAIN TO LEFT HAND, WORSE IN THE 3RD FINGER EXAMINATION/TECHNIQUE: X-RAY - LEFT XR Hand Min 3 Views 3 VIEWS COMPARISON: FINDINGS: BONES: No fracture demonstrated. Third digit/ middle finger with marked joint space narrowing and osteophytes at the proximal and distal interphalangeal joints. Similar changes also at the fifth digit PIP and DIP joints, second and fourth digits DIP joint, and first digit MCP joint. JOINTS: No dislocation. SOFT TISSUES: Soft tissue swelling of the third digit especially about the PIP joint. RAD/Hand Min 3 Views IMPRESSION: Extensive arthropathy as described most pronounced involving the third digit with associated soft tissue swelling. No evidence of fracture. Electronically Signed: Jeannette Benitez MD at 23:41 EDT ,
== END | disposition home or self-care (01) ==
LOC: MTRAD 12:39
PROVIDERS: PCP Family Medicine; Referring Provider Family Medicine; Visit Provider Family Medicine
DX: M19.042 Primary osteoarthritis, left hand (principal)
CPT/HCPCS: 73130

== ENCOUNTER → 2023-05-14 | Outpatient (CLI) | payer MEDICARE, MEDICAID, SELFPAY ==
--- NOTE | 2023-05-14 08:12 | US_ITS ---
STUDY: SUPERFICIAL ULTRASOUND - UMBILICAL REGION. REASON FOR EXAM: Male, 72 years old. INCISIONAL umbilicus HERNIA TECHNIQUE: A superficial ultrasound was performed with real-time and static rojas-scale imaging. COMPARISON: None. FINDINGS: At the level of the umbilicus, there is evidence of adipose tissue protruding. Findings are suggestive of umbilical hernia. US/Abdomen Limited IMPRESSION: Small umbilical hernia containing fat. Electronically Signed: Teo Menchaca MD at 10:37 EDT ,
== END | disposition home or self-care (01) ==
PROVIDERS: PCP Family Medicine; Referring Provider Family Medicine; Visit Provider Family Medicine
DX: K43.2 Incisional hernia without obstruction or gangrene (principal)
CPT/HCPCS: 76705

== ENCOUNTER → 2023-06-30 | Outpatient (CLI) | payer MEDICARE, MEDICAID, SELFPAY ==
--- NOTE | 2023-06-30 07:53 | CT_ITS ---
STUDY: CT ABDOMEN WITHOUT CONTRAST REASON FOR EXAM: Male, 72 years old. Umbilical hernia RADIATION DOSAGE (If Supplied By Facility): CTDIvol = ( 14.24 ) mGy, DLP = ( 500.37 ) mGycm TECHNIQUE: Transaxial images were obtained without intravenous contrast, and without oral contrast. Sagittal and coronal images were reconstructed. Individualized dose optimization techniques were used for this CT. COMPARISON: Comparison is made with prior study dated August 09, 2019. FINDINGS: The visualized lung bases are unremarkable. The visualized portions of the heart are within normal limits. 2 mm cyst in the peripheral lateral aspect of the right lobe of the liver superiorly. The patient is status post cholecystectomy. Normal spleen. Normal pancreas. Normal bilateral adrenal glands. There are multiple nonobstructive bilateral intrarenal calculi. Mild degree of nonspecific bilateral perinephric stranding. There is a small hiatal hernia. Normal small intestine. Normal colon. The appendix is visualized and appears normal. There is scattered atherosclerotic calcification of the abdominal aorta, without a demonstrated aneurysm. Normal inferior vena cava. Normal retroperitoneum. Normal abdominal wall. There are diffuse degenerative changes of the visualized lumbar spine. Minimal anterior listhesis of L4 on L5 most likely secondary to facet joint osteoarthritis. CT/Abdomen without IV Contrast IMPRESSION: Nonobstructive bilateral intrarenal calculi. No evidence of bone umbilical cord. Electronically Signed: Teo Menchaca MD at 13:02 EST ,
== END | disposition home or self-care (01) ==
LOC: CT 07:51
PROVIDERS: PCP Family Medicine; Referring Provider Family Medicine; Visit Provider Family Medicine
DX: K42.9 Umbilical hernia without obstruction or gangrene (principal)
CPT/HCPCS: 74150

== ENCOUNTER → 2024-01-06 | Outpatient (CLI) | payer MEDICARE, MEDICAID, SELFPAY ==
--- NOTE | 2024-01-06 11:07 | RAD_ITS ---
STUDY: X-RAY CHEST REASON FOR EXAM: Male, 73 years old. Cough and chills. TECHNIQUE: PA and lateral views of the chest. COMPARISON: None. FINDINGS: The lungs are clear and expanded. There is no demonstrated pleural abnormality. Normal size heart. Normal mediastinum and ariana. Normal visualized pulmonary arteries. There is atherosclerotic calcification of the aortic arch with tortuosity. There are diffuse degenerative changes of the visualized thoracic spine. Normal visualized ribs, clavicles, and shoulders. There is no demonstrated abnormality of the visualized soft tissue structures of the upper abdomen. RAD/Chest PA and Lateral IMPRESSION: Normal x-ray examination of the chest. Electronically Signed: Teo Menchaca MD at 11:41 EDT ,
== END | disposition home or self-care (01) ==
LOC: MTRAD 10:54
PROVIDERS: PCP Family Medicine; Referring Provider Physician Assistant; Visit Provider Physician Assistant
DX: R05.9 Cough, unspecified (principal)
CPT/HCPCS: 71046

== ENCOUNTER → 2024-10-14 | Outpatient (CLI) | payer MEDICARE, MEDICAID, SELFPAY ==
[2024-10-14 10:44] LABS: Hematocrit 38.2 % (40-54); Hemoglobin 13.2 g/dL (13.0-16.5); Mean Corp Hgb Conc 34.6 g/dL (32-36); Mean Corpuscular Hgb 30.8 pg (27.0-32.0); Mean Corpuscular Volume 89.3 fL (80-94); Mean Platelet Vol. 9.5 fl (6.2-12.0); Platelet Count 206 K/mm3 (150-450); RBC Distribution Width CV 12.1 % (11.6-14.6); RBC Distribution Width SD 39.3 fl (35.1-43.9); Red Blood Count 4.28 M/mm3 (4.6-6.2); White Blood Count 4.6 K/mm3 (4.4-11.0)
[2024-10-14 11:34] LABS: ALB/GLOB Ratio 1.6 RATIO (0.9-2.4); AST(SGOT) 27 U/L (<=37); Alanine Aminotransfer ALT/SGPT 22 U/L (<=46); Albumin, Serum 4.2 g/dL (3.4-4.8); Alkaline Phosphatase 66 U/L (40-129); Anion Gap 11 (5-15); BUN 24 mg/dL (4-19); Calcium,Total 9.6 mg/dL (7.6-11.0); Carbon Dioxide 23.4 mmol/L (21.0-32.0); Chloride 105 mmol/L (98-108); Cholesterol 227 mg/dL (<=200); Creatinine, Serum 1.51 mg/dL (0.70-1.20); EST Glomerular Filtration Rate 48 (>60); Globulin 2.6 g/dL (2.2-4.2); Glucose 94 mg/dL (70-99); High Density Lipoprotein 59 mg/dL; Low Density Lipoprotein Calc. 145 mg/dL; PSA,Total - Annual Screen 0.91 ng/mL (0.02-4.00); Potassium 4.1 mmol/L (3.3-5.1); Protein, Total 6.9 g/dL (5.9-8.4); Sodium Level 140 mmol/L (133-145); Total Bilirubin 0.54 mg/dL (0.00-1.30); Triglycerides 119 mg/dL; Uric Acid 6.1 mg/dL (3.5-7.2); Very Low Density Lipoprotein 24 mg/dL (5-40); cholesterol:hdl ratio screen 3.88
== END | disposition home or self-care (01) ==
LOC: MFPLAB 08:47
PROVIDERS: PCP Family Medicine; Referring Provider Family Medicine; Visit Provider Family Medicine
DX: E78.00 Pure hypercholesterolemia, unspecified (principal); Z12.5 Encounter for screening for malignant neoplasm of prostate; M10.9 Gout, unspecified; K21.9 Gastro-esophageal reflux disease without esophagitis
CPT/HCPCS: 36415; 80053; 80061; 84153; 84550; 85027; G0103

== ENCOUNTER → 2025-04-17 | Outpatient (CLI) | payer MEDICARE, MEDICAID, SELFPAY ==
[2025-04-17 10:38] LABS: Hematocrit 37.2 % (40-54); Hemoglobin 13.2 g/dL (13.0-16.5); Immature Granulocytes Count 0.010 X10^3/uL (0.0-0.0); Mean Corp Hgb Conc 35.5 g/dL (32-36); Mean Corpuscular Volume 87.1 fL (80-94); Mean Platelet Vol. 9.8 fl (6.2-12.0); NRBC Flagged by Analyzer 0 % (0-5); Platelet Count 210 K/mm3 (150-450); RBC Distribution Width CV 12.2 % (11.6-14.6); RBC Distribution Width SD 38.8 fl (35.1-43.9); Red Blood Count 4.27 M/mm3 (4.6-6.2); White Blood Count 4.7 K/mm3 (4.4-11.0)
[2025-04-17 10:53] LABS: AST(SGOT) 24 U/L (<=37); Alanine Aminotransfer ALT/SGPT 28 U/L (<=46); Albumin, Serum 4.4 g/dL (3.4-4.8); Alkaline Phosphatase 66 U/L (40-129); Anion Gap 12 (5-15); BUN 24 mg/dL (4-19); BUN/Creat Ratio 17.0 RATIO (10-20); Calcium,Total 9.6 mg/dL (7.6-11.0); Carbon Dioxide 22.6 mmol/L (21.0-32.0); Chloride 105 mmol/L (98-108); Cholesterol 230 mg/dL (<=200); Globulin 2.7 g/dL (2.2-4.2); Glucose 102 mg/dL (70-99); Low Density Lipoprotein Calc. 137 mg/dL; Potassium 4.1 mmol/L (3.3-5.1); Triglycerides 129 mg/dL; Uric Acid 6.0 mg/dL (3.5-7.2); Very Low Density Lipoprotein 26 mg/dL (5-40); cholesterol:hdl ratio screen 3.40
== END | disposition home or self-care (01) ==
LOC: MFPLAB 08:32
PROVIDERS: PCP Family Medicine; Visit Provider Family Medicine
DX: K21.9 Gastro-esophageal reflux disease without esophagitis (principal); E78.00 Pure hypercholesterolemia, unspecified; M10.9 Gout, unspecified
CPT/HCPCS: 36415; 80053; 80061; 84550; 85025

== ENCOUNTER → 2025-05-03 | Outpatient (CLI) | payer MEDICARE, MEDICAID, SELFPAY ==
--- NOTE | 2025-05-03 13:17 | RAD_ITS ---
PROCEDURE: SHOULDER MIN 2 VIEWS 05/03/2025 REASON FOR EXAM: L SHOULDER TECHNIQUE: Procedure Code: RADSH Modality: DX Procedure: SHOULDER MIN 2 VIEWS Laterality: Left COMPARISON: None RAD/Shoulder min 2 Views IMPRESSION: No acute fracture or dislocations. Mild degenerative changes of the left should er. No acute soft tissue abnormalities. No radiographic foreign body. Reading Location: [id number]
--- NOTE | 2025-05-03 13:17 | RAD_ITS ---
PROCEDURE: SHOULDER MIN 2 VIEWS 05/03/2025 REASON FOR EXAM: L SHOULDER TECHNIQUE: Procedure Code: RADSH Modality: DX Procedure: SHOULDER MIN 2 VIEWS Laterality: Left COMPARISON: None RAD/Shoulder min 2 Views IMPRESSION: No acute fracture or dislocations. Mild degenerative changes of the left should er. No acute soft tissue abnormalities. No radiographic foreign body. Reading Location: [id number]
== END | disposition home or self-care (01) ==
PROVIDERS: PCP Family Medicine; Referring Provider Family Medicine; Visit Provider Family Medicine
DX: M25.512 Pain in left shoulder (principal)
CPT/HCPCS: 73030

== ENCOUNTER 2025-06-21 13:30 | Outpatient (RCR) | payer SELFPAY ==
--- NOTE | 2025-05-16 16:22 | HP.PTEVAL_ITS ---
Patient's Visit Information Visit Information Visit Information: BENEDICTO DAVIS is a 74 year old M referred to Physical Therapy by Dr. Tl Haque MD with a diagnosis of L shoulder RC strain. Date of Evaluation: 05/16/25 Physical Therapist: Jonathan Willingham, DPT, OCS, CSCS Visit Plan Frequency: 2x /Week Duration: 4-6 Weeks Plan: 2x/week for 3-6 weeks IE HEP: seated stick flexiona dn er 10x, scap circles 10x, posture all 2x/day adn activitiy modification treat with grade 1-2 shoulder g-h mobs and arm pull, PROM gently, strength of RC adn scap and posture to HEP, MH as needed.progress strength to HEP Subjective Subjective: L shoulder pain, had R shoulder surgery Dr. Fidel DIXONR, now l one started hurting a few months ago but ignored it . It is getting worse. Might have got worse with some weights that he was doing. Er hurts. Lifting it hurts, blt on and tuck shirt hurt a little bit. Comfortable at rest. Sleep is up now and theen with pain but not bad. Sleeps on L side with CPAP. Emplopyed no: makes bed and some house chores. Not much pain with making bed unless lifts mattress. Sight imparied. Can't do much, exercises in am with walking adn some db. Walks to stores. Read bible. Ex is wall push ups 20x, mil press but quit that one. 8#. Pain Lshoulder.: Pain Intensity (Out of 10): 0 Pain Intensity Range: 0 and 5 Comment: worse with lifting or moving it into er. Objective Objective: Pt cannot see nought but shadows and is leed back by , ambulates I traser chair and table I. Good balance. Awkward scap movement B preferring to move upper arms. Shoulder aROM L painful end flexion adn er, somewhat IR. Er to 45 vs 50 on R, flexion to 130 L vs 140 R, IR to L5 B with some pain L anterior shoulder. Tender to palpation over joint surface anteriorly in L shoulder, minimally over supraspinatus tendon. + L scour, - HK, + neer, - ext rotation lag test,- drop arm. elbow and wrist AROM wFL strength er painful L 3+ and 4- R, IR 4- B, flexion painful L and 3+ and 4- on R. Empty can is mildly painful L. reflexes 2/3 bi adn tri B. sensation UE WNL to gross light touch. cervical aROM WFL and without pain Balance/Special Test Scores Quick DASH Score: 50.0000 Goals Goal 1:: Lift and rotate L shoulder without pain to improve ability to tuck in shirt. Goal Time Frame: 4-6 Weeks Goal 2:: i appropriate HEp to minimize future problems Goal Time Frame: 4-6 Weeks Goal 3:: Pain in L shoulder 80% better at 1/10 at worst Goal Time Frame: 4-6 Weeks Goal 4:: qucikdash score 16 or better Goal Time Frame: 4-6 Weeks Rehabilitation Potential Physical Therapy Diagnosis: limited ROM adn pain in L UE making ADLs painful Rehabilitation Potential: Fair Anticipated Interventions Patient/Client Instruction: Educate patient on: Condition and Plan of Care For the Purpose of:: To decrease pain, To increase ROM, To improve nutrient delivery to tissue and To increase tolerance to activity/condition/position Therapeutic Exercise to Include: Strength training, Flexibilty training, Passive ROM, Active ROM and Scapular Strength/Stabilization For the Purpose of:: To decrease pain, To increase ROM, To improve nutrient delivery to tissue and To increase tolerance to activity/condition/position Manual Therapy Techniques to Include: Mobilization, Passive ROM and Soft tissue mobilization For the Purpose of:: To decrease pain, To increase ROM, To improve nutrient delivery to tissue, To increase tolerance to activity/condition/position and To improve ability of physical actions for home/community/work/leisure Thermo therapy (hot pack): Yes For the Purpose of:: To decrease pain, To increase ROM, To improve nutrient delivery to tissue and To increase tolerance to activity/condition/position Text: Thank you for the opportunity to evaluate your patient. For Medicare and Medicare HMO plans, please review the plan of care and approve it. It will need to be FAXED BACK to us at [phone] for Medicare purposes. For Medicare only, by signing this I certify the plan of care. Please let me know if there are questions or concerns regarding this plan of care. Physician Sign ature: Date:
--- NOTE | 2025-08-23 14:01 | HP.PT.NRP ---
Patient Information Patient Information: BENEDICTO DAVIS was seen in my office for initial evaluation on 05/16/25. The following Plan of Care was established for this patient: POC Established Initial Frequency: 2x /Week Initial Duration: 4-6 Weeks Anticipated Interventions Patient/Client Instruction: Educate patient on: Condition and Plan of Care For the Purpose of:: To decrease pain, To increase ROM, To improve nutrient delivery to tissue and To increase tolerance to activity/condition/position Therapeutic Exercise to Include: Strength training, Flexibilty training, Passive ROM, Active ROM and Scapular Strength/Stabilization For the Purpose of:: To decrease pain, To increase ROM, To improve nutrient delivery to tissue and To increase tolerance to activity/condition/position Manual Therapy Techniques to Include: Mobilization, Passive ROM and Soft tissue mobilization For the Purpose of:: To decrease pain, To increase ROM, To improve nutrient delivery to tissue, To increase tolerance to activity/condition/position and To improve ability of physical actions for home/community/work/leisure Thermo therapy (hot pack): Yes For the Purpose of:: To decrease pain, To increase ROM, To improve nutrient delivery to tissue and To increase tolerance to activity/condition/position Last Seen Last Seen: This patient was last seen in our office 06/21/25. Pertinent comments regarding their Physical therapy will appear below: Pt seen 3 visits of POC and did not return for any more of his POC. it has been over 8 weeks and i will discontinue from therpay. At this point I will be discontinuing this patient from physical therapy. I would be happy to see this patient again in the future if found appropriate by the physician. Thank you! Jonathan Willingham, DPT, OCS, CSCS Balance/Gait/Functional tests Balance/Special Test Scores Quick DASH Score: 50.0000
== END 2025-06-21 19:00 | disposition home or self-care (01) ==
LOC: PT 13:30
PROVIDERS: PCP Family Medicine; Referring Provider Family Medicine; Visit Provider Family Medicine
DX: S46.012D Strain of muscle(s) and tendon(s) of the rotator cuff of left shoulder, subsequent encounter (principal)
CPT/HCPCS: 97110; 97161

== ENCOUNTER → 2025-06-26 | Outpatient (CLI) | payer MEDICARE, MEDICAID, SELFPAY ==
--- NOTE | 2025-06-26 11:10 | RAD_ITS ---
PROCEDURE: CHEST PA AND LATERAL 06/26/2025 REASON FOR EXAM: SOB TECHNIQUE: Procedure Code: RADCXR Modality: DX Procedure: CHEST PA AND LATERAL COMPARISON: January 06, 2024 FINDINGS: Heart size and mediastinal configuration are within normal limits. There are increased interstitial markings in the lung bases and lingular segment, similar to the prior. There is no new infiltrate or consolidation. There is no pneumothorax or effusion. There is no acute bony abnormality. Aortic calcifications are visible. RAD/Chest PA and Lateral IMPRESSION: No acute infiltrate or consolidation is identified. Reading Location: [facility]
== END | disposition home or self-care (01) ==
LOC: MTRAD 11:10
PROVIDERS: PCP Family Medicine; Referring Provider Physician Assistant; Visit Provider Physician Assistant
DX: R06.02 Shortness of breath (principal); R05.9 Cough, unspecified
CPT/HCPCS: 71046